=== PATIENT | female | born 2000 | race Caucasian/White ===

== ENCOUNTER 2023-10-04 12:25 | Emergency (ER) | payer OTHER ==
--- OUTSIDE RECORDS SUMMARY | 2023-10-04 12:33 | XMS REPORT | Continuity of Care Document ---
Author Name Unknown Address [address] [facility] [address] [place] [address] [facility] thconnect Address [address] [facility]. [address] [place] [address] Care Team Providers Care Civil Division Deputy Sheriff Name Role Phone PCP, PATIENT DOES NOT HAVE A Primary Care Physic marcie Unavailable RAYMON RODRIGUEZ Attending Clinician RAYMON Beltrán Attending Clinician Tito sahni Ultrasound, [facility] Attending Clinician UnavailJessica Monroe MD Attending Clinician [phone] JESSICA SAUCEDO Attending Clinician Unavailabl e Lab, Ang - Db Attending Clinician Unavailable Doctor Unassigned, [place] Attending Clinician ARJUN Wilkes Attending Clinician Arjun Herrera MD Attending Clinician + Shavon PACHECO Attending Clinician Unavailable Shavon Salgado Attending Clinician [phone] PAXTON HOPKINS Attending Clinician Unavailable Nurse, [facility] Attending Clinician Un available Unknown, Attending Attending Clinician Unavailab SHAISTA Ryan Attending Clinician Unavailable Shaista Yuen PA-C Attending Clinician [phone] MARCELINO DUDLEY Attending Clinician Unavailab Paxton Gardner Attending Clinician [phone] Marisol James Attending Clinician [phone] MARISOL NGUYEN Attending Clinician Unavailable Diego Jain Attending Clinician Unavailable Marcelino Banerjee Attending Clinician IVETTE YORK Attending Clinician Unavail able Physician, No Primary or Family Admitting Clinic marcie Unavailable Payers Payer Name Policy Type Policy Number Effective Date Expirati on Date Source [facility] [facility] [id number] 2023 00:00:00 Problems Condition Name Condition Details Condition Category Status Onset Date Resolution Date Last Treatment Date Treating Clinician Comments Source Depression affecting Depression affecting Disease Active 5-30 00:00: 00 [facility] Low lying placenta nos or without hemorrhage , second trimester Low lying placenta nos or without hemorrhage , second trimester Disease Active 3-28 00:00: 00 [facility] High-risk in second trimester High-risk in second trimester Disease Active 3-28 00:00: 00 [facility] Hx of preeclamps ia, prior , currently Hx of preeclamps ia, prior , currently Disease Active 2022-04 2- 00:00: 00 [facility] Chronic depression Chronic depression Disease Active 6- 00:00: 00 [facility] Panic attack Panic attack Disease Active 6- 00:00: 00 [facility] Psoriasis Psoriasis Disease Active 8- 00:00: 00 [facility] Vaginal discharge Vaginal discharge Disease Active 2019-04 2 00:00: 00 [facility] Need for influenza vaccinatio n Need for influenza vaccinatio n Disease Active 2018-04- 00:00: 00 [facility] Blood pressure check Blood pressure check Disease Active 2018-04 00:00: 00 [facility] Screen for STD (sexually transmitte d disease) Screen for STD (sexually transmitte d disease) Disease Active 2018-04 00:00: 00 [facility] Engorgemen t of breast associated with childbirth , antepartum Engorgemen t of breast associated with childbirth , antepartum Disease Active 2018-04 00:00: 00 [facility] Antepartum mild preeclamps ia Antepartum mild preeclamps ia Disease Active 2018-04 00:00: 00 [facility] Anemia, Anemia, Disease Active 2018-04 00:00: 00 [facility] (spontaneo us vaginal delivery) (spontaneo us vaginal delivery) Disease Active 2018-04 00:00: 00 [facility] Single liveborn Single liveborn Disease Active 2018-04 00:00: 00 [facility] Anemia of mother in , antepartum Anemia of mother in , antepartum Disease Active 2018-04 00:00: 00 [facility] Anemia of mother in , antepartum Anemia of mother in , antepartum Disease Active 2018-04 00:00: 00 [facility] Proteinuri a affecting in third trimester Proteinuri a affecting in third trimester Disease Active 2018-04 0 00:00: 00 [facility] Abnormal maternal glucose tolerance, antepartum Abnormal maternal glucose tolerance, antepartum Disease Active 12-18 00:00: 00 Overview: Formattin g of this note might be different from the original. Failed 1 hr gtt pending 3hr gtt [facility] Family history of congenital heart defect Family history of congenital heart defect Disease Active 6 00:00: 00 Overview: Formattin g of this note might be different from the original. Father of patient with VSD [facility] High-risk in first trimester High-risk in first trimester Disease Active 3-25 00:00: 00 [facility] High risk teen in second trimester High risk teen in second trimester Disease Active 07-16 00:00: 00 [facility] Primigravi da in first trimester Primigravi da in first trimester Disease Active 07-16 00:00: 00 [facility] History of depression History of depression Disease Active 07-16 00:00: 00 [facility] History of self-harm History of self-harm Disease Active 07-16 00:00: 00 [facility] Allergies, Adverse Reactions, Alerts Allergy Name Allergy Type Status Severity Reaction(s) Onset Date Inactive Date Treating Clinician Comments Source No Known Allergie s DA Active U 10-07 00:00: 00 [facility] No Known Allergie s DA Active U 10-07 00:00: 00 [facility] NO KNOWN ALLERGIE S Drug Class Active [facility] Social History Social Habit Start Date Stop Date Quantity Comments Source ASSERTION 2023-03-08 00:00:00 [facility] intake 2023-09-21 00:00:00 2023-09-21 00:00:00 Ex-drinker (finding) [facility] Tobacco use and exposure 2023-09-07 00:00:00 2023-09-07 00:00:00 Smokeless tobacco non-user [facility] Alcohol intake 2023-08-17 00:00:00 2023-08-17 00:00:00 Ex-drinker (finding) [facility] Exposure to SARS-CoV-2 (event) 2022-08-22 00:00:00 2022-09-01 20:12:00 Not sure [facility] History SDOH Alcohol Frequency 2020-04-13 00:00:00 2020-04-13 00:00:00 99 [facility] History SDOH Alcohol Std Drinks 2020-04-13 00:00:00 2020-04-13 00:00:00 99 [facility] History SDOH Alcohol Binge 2020-04-13 00:00:00 2020-04-13 00:00:00 99 [facility] Alcohol Comment 2020-04-13 00:00:00 2020-04-13 00:00:00 social [facility] Tobacco Comment 2020-04-13 00:00:00 2020-04-13 00:00:00 vapes [facility] History of Social function 2019-08-01 00:00:00 2019-08-01 00:00:00 [facility] History of tobacco use 2018-07-13 00:00:00 Cigarette Smoker [facility] Sex assigned at 2000 00:00:00 2000 00:00:00 [facility] Smoking Status Start Date Stop Date Source Ex-smoker 2023-09-07 00:00:00 2023-09-07 [facility] Ordered Medication Name Filled Medication Name Start Date Stop Date Current Medication? Ordering Clinician Indication Dosage Frequency Signature (SIG) Comments Components Source hydrOXYzine 25 mg tablet 09-11 00:00: 00 Yes [id number] 25mg Take 1 tablet by mouth every 6 (six) hours as needed for Itching. [facility] SERTraline (ZOLOFT) 100 mg tablet 09-11 00:00: 00 Yes [id number] 200mg Take 2 tablets by mouth in the morning. [facility] vit no.124/iron /folic ( VITAMIN ORAL) 16 14:41: 03 Yes Take by mouth. [facility] vit no.124/iron /folic ( VITAMIN ORAL) 3-28 16:04: 01 Yes Take by mouth. [facility] clonazePAM 0.5 mg tablet 06-08 13:14: 07 Yes TAKE 1 TABLET BY MOUTH EVERY MORNING 1 TABLET EVERY EVENING AND 1 TABLET BEFORE BEDTIME [facility] SERTraline (ZOLOFT) 100 mg tablet 06-08 00:00: 00 09-11 00:00 :00 No [id number] 100mg Take 1 tablet by mouth in the morning. [facility] cephALEXin (KEFLEX) capsule 500 mg 2022-04 22:30: 00 04-02 10:29 :00 No 500mg 500 mg, Oral, ONCE, 1 dose, On 12/9/23 at 1630, VIDAL
Re ason for Anti-Infec tive: Documented Infection< br>Documen dieudonne Infection Site: Urine
D uration of Therapy: 10 days [facility] cephALEXin (KEFLEX) 500 mg capsule 2022-04 2-09 00:00: 00 04-12 05:59 :00 No [id number] 500mg Take 1 capsule by mouth in the morning and 1 capsule at noon and 1 capsule in the evening. Do all this for 10 days. [facility] clonazePAM 0.5 mg tablet 2022-04 2 09:11: 27 Yes TAKE 1 TABLET BY MOUTH EVERY MORNING 1 TABLET EVERY EVENING AND 1 TABLET BEFORE BEDTIME [facility] traZODone 50 mg tablet 2022-04 1 00:00: 00 Yes 50mg Take 1 tablet by mouth. [facility] SERTraline 100 mg tablet 9- 00:00: 00 Yes daily. [facility] Nitrofurant oin&Nit. Macrocryst (MACROBID) 100 mg capsule 5-11 00:00: 00 09-09 04:59 :00 No [id number] 100mg Take 1 capsule by mouth in the morning and 1 capsule in the evening. Do all this for 7 days. [facility] cephALEXin (KEFLEX) 500 mg capsule 2020-04 0-14 00:00: 00 02-12 04:59 :00 No [id number] 500mg Take 1 capsule by mouth 2 (two) times daily for 7 days. [facility] neomycin-po lymyxin-hyd rocortisone otic solution 8-31 00:00: 00 Yes [facility] norgestimat e-ethinyl estradioL (ORTHO TRI-CYCLEN LO, 28,) 0.18/0.215/ 0.25 mg-25 mcg tablet 3-24 00:00: 00 03-30 00:00 :00 No [id number] 1{tbl} Take 1 tablet by mouth daily. [facility] Immunizations Ordered Immunization Name Filled Immunization Name Date Status Comments Source Influenza Virus Vaccine Quad .5 mL IM 6+ MO 2019-03-15 00:00:00 Completed [facility] Influenza Virus Vaccine Quad .5 mL IM 6+ MO 2019-03-15 00:00:00 Completed [facility] Influenza Virus Vaccine Quad .5 mL IM 6+ MO 2019-03-15 00:00:00 Completed [facility] Influenza Virus Vaccine Quad .5 mL IM 6+ MO 2019-03-15 00:00:00 Completed [facility] TDAP 2018-12-31 00:00:00 Completed [facility] TDAP 2018-12-31 00:00:00 Completed [facility] TDAP 2018-12-31 00:00:00 Completed [facility] TDAP 2018-12-31 00:00:00 Completed [facility] Influenza Virus Vaccine Quad .5 mL IM 6+ MO 2018-07-16 00:00:00 Completed [facility] Influenza Virus Vaccine Quad .5 mL IM 6+ MO 2018-07-16 00:00:00 Completed [facility] Influenza Virus Vaccine Quad .5 mL IM 6+ MO 2018-07-16 00:00:00 Completed [facility] Influenza Virus Vaccine Quad .5 mL IM 6+ MO 2018-07-16 00:00:00 Completed [facility] HIB 4 Dose Schedule Unknown Completed [facility] Meningococcal Polysaccharide (groups A, C, Y and W-135) conjugate vaccine (MCV4P) Unknown Completed [facility] MMR Unknown Completed [facility] MMR Unknown Completed [facility] IPV Unknown Completed [facility] IPV Unknown Completed [facility] IPV Unknown Completed [facility] IPV Unknown Completed [facility] Varicella (varivax)(chicken pox) Unknown Completed [facility] Varicella (varivax)(chicken pox) Unknown Completed [facility] TDAP Unknown Completed [facility] Influenza Virus Vaccine Quad .5 mL IM 6+ MO (FLUZONE/FLULAVAL/FL UARIX) Unknown Completed [facility] TDAP Unknown Completed [facility] Influenza Virus Vaccine Quad .5 mL IM 6+ MO (FLUZONE/FLULAVAL/FL UARIX) Unknown Completed [facility] Influenza Virus Vaccine Quad .5 mL IM 6+ MO (FLUZONE/FLULAVAL/FL UARIX) Unknown Completed [facility] TDAP Unknown Completed [facility] Influenza Virus Vaccine Quad .5 mL IM 6+ MO (FLUZONE/FLULAVAL/FL UARIX) Unknown Completed [facility] Influenza Virus Vaccine Quad IM, Preserv and ABX Free 6 MO-64 YRS (FLUCELVAX) Unknown Completed [facility] TDAP Unknown Completed [facility] DTaP, Unspecified Formulation Unknown Completed [facility] DTaP, Unspecified Formulation Unknown Completed [facility] DTaP, Unspecified Formulation Unknown Completed [facility] DTaP, Unspecified Formulation Unknown Completed [facility] DTaP, Unspecified Formulation Unknown Completed [facility] HEPATITIS A Unknown Completed [facility] Hep B, Adol or Pedi Dosage Unknown Completed [facility] Hep B, Adol or Pedi Dosage Unknown Completed [facility] Hep B, Adol or Pedi Dosage Unknown Completed [facility] HIB 4 Dose Schedule Unknown Completed [facility] HIB 4 Dose Schedule Unknown Completed [facility] HIB 4 Dose Schedule Unknown Completed [facility] HIB 4 Dose Schedule Unknown Completed [facility] Meningococcal Polysaccharide (groups A, C, Y and W-135) conjugate vaccine (MCV4P) Unknown Completed [facility] MMR Unknown Completed [facility] MMR Unknown Completed [facility] IPV Unknown Completed [facility] IPV Unknown Completed [facility] IPV Unknown Completed [facility] IPV Unknown Completed [facility] Varicella (varivax)(chicken pox) Unknown Completed [facility] Varicella (varivax)(chicken pox) Unknown Completed [facility] Influenza Virus Vaccine Quad .5 mL IM 6+ MO (FLUZONE/FLULAVAL/FL UARIX) Unknown Completed [facility] TDAP Unknown Completed [facility] Influenza Virus Vaccine Quad .5 mL IM 6+ MO (FLUZONE/FLULAVAL/FL UARIX) Unknown Completed [facility] Influenza Virus Vaccine Quad IM, Preserv and ABX Free 6 MO-64 YRS (FLUCELVAX) Unknown Completed [facility] TDAP Unknown Completed [facility] DTaP, Unspecified Formulation Unknown Completed [facility] DTaP, Unspecified Formulation Unknown Completed [facility] DTaP, Unspecified Formulation Unknown Completed [facility] DTaP, Unspecified Formulation Unknown Completed [facility] DTaP, Unspecified Formulation Unknown Completed [facility] HEPATITIS A Unknown Completed [facility] Hep B, Adol or Pedi Dosage Unknown Completed [facility] Hep B, Adol or Pedi Dosage Unknown Completed [facility] Hep B, Adol or Pedi Dosage Unknown Completed [facility] HIB 4 Dose Schedule Unknown Completed [facility] HIB 4 Dose Schedule Unknown Completed [facility] HIB 4 Dose Schedule Unknown Completed [facility] HIB 4 Dose Schedule Unknown Completed [facility] Meningococcal Polysaccharide (groups A, C, Y and W-135) conjugate vaccine (MCV4P) Unknown Completed [facility] MMR Unknown Completed [facility] MMR Unknown Completed [facility] IPV Unknown Completed [facility] IPV Unknown Completed [facility] IPV Unknown Completed [facility] IPV Unknown Completed [facility] Varicella (varivax)(chicken pox) Unknown Completed [facility] Varicella (varivax)(chicken pox) Unknown Completed [facility] Influenza Virus Vaccine Quad .5 mL IM 6+ MO (FLUZONE/FLULAVAL/FL UARIX) Unknown Completed [facility] TDAP Unknown Completed [facility] Influenza Virus Vaccine Quad .5 mL IM 6+ MO (FLUZONE/FLULAVAL/FL UARIX) Unknown Completed [facility] Influenza Virus Vaccine Quad IM, Preserv and ABX Free 6 MO-64 YRS (FLUCELVAX) Unknown Completed [facility] TDAP Unknown Completed [facility] DTaP, Unspecified Formulation Unknown Completed [facility] DTaP, Unspecified Formulation Unknown Completed [facility] DTaP, Unspecified Formulation Unknown Completed [facility] DTaP, Unspecified Formulation Unknown Completed [facility] DTaP, Unspecified Formulation Unknown Completed [facility] HEPATITIS A Unknown Completed [facility] Hep B, Adol or Pedi Dosage Unknown Completed [facility] Hep B, Adol or Pedi Dosage Unknown Completed [facility] Hep B, Adol or Pedi Dosage Unknown Completed [facility] HIB 4 Dose Schedule Unknown Completed [facility] HIB 4 Dose Schedule Unknown Completed [facility] HIB 4 Dose Schedule Unknown Completed [facility] HIB 4 Dose Schedule Unknown Completed [facility] Meningococcal Polysaccharide (groups A, C, Y and W-135) conjugate vaccine (MCV4P) Unknown Completed [facility] MMR Unknown Completed [facility] MMR Unknown Completed [facility] IPV Unknown Completed [facility] IPV Unknown Completed [facility] IPV Unknown Completed [facility] IPV Unknown Completed [facility] Varicella (varivax)(chicken pox) Unknown Completed [facility] Varicella (varivax)(chicken pox) Unknown Completed [facility] Influenza Virus Vaccine Quad .5 mL IM 6+ MO (FLUZONE/FLULAVAL/FL UARIX) Unknown Completed [facility] TDAP Unknown Completed [facility] Influenza Virus Vaccine Quad .5 mL IM 6+ MO (FLUZONE/FLULAVAL/FL UARIX) Unknown Completed [facility] Influenza Virus Vaccine Quad IM, Preserv and ABX Free 6 MO-64 YRS (FLUCELVAX) Unknown Completed [facility] TDAP Unknown Completed [facility] DTaP, Unspecified Formulation Unknown Completed [facility] DTaP, Unspecified Formulation Unknown Completed [facility] DTaP, Unspecified Formulation Unknown Completed [facility] DTaP, Unspecified Formulation Unknown Completed [facility] DTaP, Unspecified Formulation Unknown Completed [facility] HEPATITIS A Unknown Completed [facility] Hep B, Adol or Pedi Dosage Unknown Completed [facility] Hep B, Adol or Pedi Dosage Unknown Completed [facility] Hep B, Adol or Pedi Dosage Unknown Completed [facility] HIB 4 Dose Schedule Unknown Completed [facility] HIB 4 Dose Schedule Unknown Completed [facility] HIB 4 Dose Schedule Unknown Completed [facility] HIB 4 Dose Schedule Unknown Completed [facility] Meningococcal Polysaccharide (groups A, C, Y and W-135) conjugate vaccine (MCV4P) Unknown Completed [facility] MMR Unknown Completed [facility] MMR Unknown Completed [facility] IPV Unknown Completed [facility] IPV Unknown Completed [facility] IPV Unknown Completed [facility] IPV Unknown Completed [facility] Varicella (varivax)(chicken pox) Unknown Completed [facility] Varicella (varivax)(chicken pox) Unknown Completed [facility] Influenza Virus Vaccine Quad .5 mL IM 6+ MO (FLUZONE/FLULAVAL/FL UARIX) Unknown Completed [facility] TDAP Unknown Completed [facility] Influenza Virus Vaccine Quad .5 mL IM 6+ MO (FLUZONE/FLULAVAL/FL UARIX) Unknown Completed [facility] Influenza Virus Vaccine Quad IM, Preserv and ABX Free 6 MO-64 YRS (FLUCELVAX) Unknown Completed [facility] TDAP Unknown Completed [facility] DTaP, Unspecified Formulation Unknown Completed [facility] DTaP, Unspecified Formulation Unknown Completed [facility] DTaP, Unspecified Formulation Unknown Completed [facility] DTaP, Unspecified Formulation Unknown Completed [facility] DTaP, Unspecified Formulation Unknown Completed [facility] HEPATITIS A Unknown Completed [facility] Hep B, Adol or Pedi Dosage Unknown Completed [facility] Hep B, Adol or Pedi Dosage Unknown Completed [facility] Hep B, Adol or Pedi Dosage Unknown Completed [facility] HIB 4 Dose Schedule Unknown Completed [facility] HIB 4 Dose Schedule Unknown Completed [facility] HIB 4 Dose Schedule Unknown Completed [facility] HIB 4 Dose Schedule Unknown Completed [facility] Meningococcal Polysaccharide (groups A, C, Y and W-135) conjugate vaccine (MCV4P) Unknown Completed [facility] MMR Unknown Completed [facility] MMR Unknown Completed [facility] IPV Unknown Completed [facility] IPV Unknown Completed [facility] IPV Unknown Completed [facility] IPV Unknown Completed [facility] Varicella (varivax)(chicken pox) Unknown Completed [facility] Varicella (varivax)(chicken pox) Unknown Completed [facility] Influenza Virus Vaccine Quad .5 mL IM 6+ MO (FLUZONE/FLULAVAL/FL UARIX) Unknown Completed [facility] TDAP Unknown Completed [facility] Influenza Virus Vaccine Quad .5 mL IM 6+ MO (FLUZONE/FLULAVAL/FL UARIX) Unknown Completed [facility] Influenza Virus Vaccine Quad IM, Preserv and ABX Free 6 MO-64 YRS (FLUCELVAX) Unknown Completed [facility] TDAP Unknown Completed [facility] DTaP, Unspecified Formulation Unknown Completed [facility] DTaP, Unspecified Formulation Unknown Completed [facility] DTaP, Unspecified Formulation Unknown Completed [facility] DTaP, Unspecified Formulation Unknown Completed [facility] DTaP, Unspecified Formulation Unknown Completed [facility] HEPATITIS A Unknown Completed [facility] Hep B, Adol or Pedi Dosage Unknown Completed [facility] Hep B, Adol or Pedi Dosage Unknown Completed [facility] Hep B, Adol or Pedi Dosage Unknown Completed [facility] HIB 4 Dose Schedule Unknown Completed [facility] HIB 4 Dose Schedule Unknown Completed [facility] HIB 4 Dose Schedule Unknown Completed [facility] HIB 4 Dose Schedule Unknown Completed [facility] Meningococcal Polysaccharide (groups A, C, Y and W-135) conjugate vaccine (MCV4P) Unknown Completed [facility] MMR Unknown Completed [facility] MMR Unknown Completed [facility] IPV Unknown Completed [facility] IPV Unknown Completed [facility] IPV Unknown Completed [facility] IPV Unknown Completed [facility] Varicella (varivax)(chicken pox) Unknown Completed [facility] Varicella (varivax)(chicken pox) Unknown Completed [facility] Influenza Virus Vaccine Quad .5 mL IM 6+ MO (FLUZONE/FLULAVAL/FL UARIX) Unknown Completed [facility] TDAP Unknown Completed [facility] Influenza Virus Vaccine Quad .5 mL IM 6+ MO (FLUZONE/FLULAVAL/FL UARIX) Unknown Completed [facility] Influenza Virus Vaccine Quad IM, Preserv and ABX Free 6 MO-64 YRS (FLUCELVAX) Unknown Completed [facility] TDAP Unknown Completed [facility] DTaP, Unspecified Formulation Unknown Completed [facility] DTaP, Unspecified Formulation Unknown Completed [facility] DTaP, Unspecified Formulation Unknown Completed [facility] DTaP, Unspecified Formulation Unknown Completed [facility] DTaP, Unspecified Formulation Unknown Completed [facility] HEPATITIS A Unknown Completed [facility] Hep B, Adol or Pedi Dosage Unknown Completed [facility] Hep B, Adol or Pedi Dosage Unknown Completed [facility] Hep B, Adol or Pedi Dosage Unknown Completed [facility] HIB 4 Dose Schedule Unknown Completed [facility] HIB 4 Dose Schedule Unknown Completed [facility] HIB 4 Dose Schedule Unknown Completed [facility] HIB 4 Dose Schedule Unknown Completed [facility] Meningococcal Polysaccharide (groups A, C, Y and W-135) conjugate vaccine (MCV4P) Unknown Completed [facility] MMR Unknown Completed [facility] MMR Unknown Completed [facility] IPV Unknown Completed [facility] IPV Unknown Completed [facility] IPV Unknown Completed [facility] IPV Unknown Completed [facility] Varicella (varivax)(chicken pox) Unknown Completed [facility] Varicella (varivax)(chicken pox) Unknown Completed [facility] Influenza Virus Vaccine Quad .5 mL IM 6+ MO (FLUZONE/FLULAVAL/FL UARIX) Unknown Completed [facility] TDAP Unknown Completed [facility] Influenza Virus Vaccine Quad .5 mL IM 6+ MO (FLUZONE/FLULAVAL/FL UARIX) Unknown Completed [facility] Influenza Virus Vaccine Quad IM, Preserv and ABX Free 6 MO-64 YRS (FLUCELVAX) Unknown Completed [facility] TDAP Unknown Completed [facility] DTaP, Unspecified Formulation Unknown Completed [facility] DTaP, Unspecified Formulation Unknown Completed [facility] DTaP, Unspecified Formulation Unknown Completed [facility] DTaP, Unspecified Formulation Unknown Completed [facility] DTaP, Unspecified Formulation Unknown Completed [facility] HEPATITIS A Unknown Completed [facility] Hep B, Adol or Pedi Dosage Unknown Completed [facility] Hep B, Adol or Pedi Dosage Unknown Completed [facility] Hep B, Adol or Pedi Dosage Unknown Completed [facility] HIB 4 Dose Schedule Unknown Completed [facility] HIB 4 Dose Schedule Unknown Completed [facility] HIB 4 Dose Schedule Unknown Completed [facility] HIB 4 Dose Schedule Unknown Completed [facility] Meningococcal Polysaccharide (groups A, C, Y and W-135) conjugate vaccine (MCV4P) Unknown Completed [facility] MMR Unknown Completed [facility] MMR Unknown Completed [facility] IPV Unknown Completed [facility] IPV Unknown Completed [facility] IPV Unknown Completed [facility] IPV Unknown Completed [facility] Varicella (varivax)(chicken pox) Unknown Completed [facility] Varicella (varivax)(chicken pox) Unknown Completed [facility] Influenza Virus Vaccine Quad .5 mL IM 6+ MO (FLUZONE/FLULAVAL/FL UARIX) Unknown Completed [facility] TDAP Unknown Completed [facility] Influenza Virus Vaccine Quad .5 mL IM 6+ MO (FLUZONE/FLULAVAL/FL UARIX) Unknown Completed [facility] Influenza Virus Vaccine Quad IM, Preserv and ABX Free 6 MO-64 YRS (FLUCELVAX) Unknown Completed [facility] TDAP Unknown Completed [facility] DTaP, Unspecified Formulation Unknown Completed [facility] DTaP, Unspecified Formulation Unknown Completed [facility] DTaP, Unspecified Formulation Unknown Completed [facility] DTaP, Unspecified Formulation Unknown Completed [facility] DTaP, Unspecified Formulation Unknown Completed [facility] HEPATITIS A Unknown Completed [facility] Hep B, Adol or Pedi Dosage Unknown Completed [facility] Hep B, Adol or Pedi Dosage Unknown Completed [facility] Hep B, Adol or Pedi Dosage Unknown Completed [facility] HIB 4 Dose Schedule Unknown Completed [facility] HIB 4 Dose Schedule Unknown Completed [facility] HIB 4 Dose Schedule Unknown Completed [facility] HIB 4 Dose Schedule Unknown Completed [facility] Meningococcal Polysaccharide (groups A, C, Y and W-135) conjugate vaccine (MCV4P) Unknown Completed [facility] MMR Unknown Completed [facility] MMR Unknown Completed [facility] IPV Unknown Completed [facility] IPV Unknown Completed [facility] IPV Unknown Completed [facility] IPV Unknown Completed [facility] Varicella (varivax)(chicken pox) Unknown Completed [facility] Varicella (varivax)(chicken pox) Unknown Completed [facility] Influenza Virus Vaccine Quad .5 mL IM 6+ MO (FLUZONE/FLULAVAL/FL UARIX) Unknown Completed [facility] TDAP Unknown Completed [facility] Influenza Virus Vaccine Quad .5 mL IM 6+ MO (FLUZONE/FLULAVAL/FL UARIX) Unknown Completed [facility] Influenza Virus Vaccine Quad IM, Preserv and ABX Free 6 MO-64 YRS (FLUCELVAX) Unknown Completed [facility] TDAP Unknown Completed [facility] DTaP, Unspecified Formulation Unknown Completed [facility] DTaP, Unspecified Formulation Unknown Completed [facility] DTaP, Unspecified Formulation Unknown Completed [facility] DTaP, Unspecified Formulation Unknown Completed [facility] DTaP, Unspecified Formulation Unknown Completed [facility] HEPATITIS A Unknown Completed [facility] Hep B, Adol or Pedi Dosage Unknown Completed [facility] Hep B, Adol or Pedi Dosage Unknown Completed [facility] Hep B, Adol or Pedi Dosage Unknown Completed [facility] HIB 4 Dose Schedule Unknown Completed [facility] HIB 4 Dose Schedule Unknown Completed [facility] HIB 4 Dose Schedule Unknown Completed [facility] HIB 4 Dose Schedule Unknown Completed [facility] Meningococcal Polysaccharide (groups A, C, Y and W-135) conjugate vaccine (MCV4P) Unknown Completed [facility] MMR Unknown Completed [facility] MMR Unknown Completed [facility] IPV Unknown Completed [facility] IPV Unknown Completed [facility] IPV Unknown Completed [facility] IPV Unknown Completed [facility] Varicella (varivax)(chicken pox) Unknown Completed [facility] Varicella (varivax)(chicken pox) Unknown Completed [facility] Influenza Virus Vaccine Quad .5 mL IM 6+ MO (FLUZONE/FLULAVAL/FL UARIX) Unknown Completed [facility] TDAP Unknown Completed [facility] Influenza Virus Vaccine Quad .5 mL IM 6+ MO (FLUZONE/FLULAVAL/FL UARIX) Unknown Completed [facility] Influenza Virus Vaccine Quad IM, Preserv and ABX Free 6 MO-64 YRS (FLUCELVAX) Unknown Completed [facility] TDAP Unknown Completed [facility] DTaP, Unspecified Formulation Unknown Completed [facility] DTaP, Unspecified Formulation Unknown Completed [facility] DTaP, Unspecified Formulation Unknown Completed [facility] DTaP, Unspecified Formulation Unknown Completed [facility] DTaP, Unspecified Formulation Unknown Completed [facility] HEPATITIS A Unknown Completed [facility] Hep B, Adol or Pedi Dosage Unknown Completed [facility] Hep B, Adol or Pedi Dosage Unknown Completed [facility] Hep B, Adol or Pedi Dosage Unknown Completed [facility] HIB 4 Dose Schedule Unknown Completed [facility] HIB 4 Dose Schedule Unknown Completed [facility] HIB 4 Dose Schedule Unknown Completed [facility] HIB 4 Dose Schedule Unknown Completed [facility] Meningococcal Polysaccharide (groups A, C, Y and W-135) conjugate vaccine (MCV4P) Unknown Completed [facility] MMR Unknown Completed [facility] MMR Unknown Completed [facility] IPV Unknown Completed [facility] IPV Unknown Completed [facility] IPV Unknown Completed [facility] IPV Unknown Completed [facility] Varicella (varivax)(chicken pox) Unknown Completed [facility] Varicella (varivax)(chicken pox) Unknown Completed [facility] Influenza Virus Vaccine Quad .5 mL IM 6+ MO (FLUZONE/FLULAVAL/FL UARIX) Unknown Completed [facility] TDAP Unknown Completed [facility] Influenza Virus Vaccine Quad .5 mL IM 6+ MO (FLUZONE/FLULAVAL/FL UARIX) Unknown Completed [facility] Influenza Virus Vaccine Quad IM, Preserv and ABX Free 6 MO-64 YRS (FLUCELVAX) Unknown Completed [facility] TDAP Unknown Completed [facility] DTaP, Unspecified Formulation Unknown Completed [facility] DTaP, Unspecified Formulation Unknown Completed [facility] DTaP, Unspecified Formulation Unknown Completed [facility] DTaP, Unspecified Formulation Unknown Completed [facility] DTaP, Unspecified Formulation Unknown Completed [facility] HEPATITIS A Unknown Completed [facility] Hep B, Adol or Pedi Dosage Unknown Completed [facility] Hep B, Adol or Pedi Dosage Unknown Completed [facility] Hep B, Adol or Pedi Dosage Unknown Completed [facility] HIB 4 Dose Schedule Unknown Completed [facility] HIB 4 Dose Schedule Unknown Completed [facility] HIB 4 Dose Schedule Unknown Completed [facility] HIB 4 Dose Schedule Unknown Completed [facility] Meningococcal Polysaccharide (groups A, C, Y and W-135) conjugate vaccine (MCV4P) Unknown Completed [facility] MMR Unknown Completed [facility] MMR Unknown Completed [facility] IPV Unknown Completed [facility] IPV Unknown Completed [facility] IPV Unknown Completed [facility] IPV Unknown Completed [facility] Varicella (varivax)(chicken pox) Unknown Completed [facility] Varicella (varivax)(chicken pox) Unknown Completed [facility] Influenza Virus Vaccine Quad .5 mL IM 6+ MO (FLUZONE/FLULAVAL/FL UARIX) Unknown Completed [facility] TDAP Unknown Completed [facility] Influenza Virus Vaccine Quad .5 mL IM 6+ MO (FLUZONE/FLULAVAL/FL UARIX) Unknown Completed [facility] Influenza Virus Vaccine Quad IM, Preserv and ABX Free 6 MO-64 YRS (FLUCELVAX) Unknown Completed [facility] TDAP Unknown Completed [facility] DTaP, Unspecified Formulation Unknown Completed [facility] DTaP, Unspecified Formulation Unknown Completed [facility] DTaP, Unspecified Formulation Unknown Completed [facility] DTaP, Unspecified Formulation Unknown Completed [facility] DTaP, Unspecified Formulation Unknown Completed [facility] HEPATITIS A Unknown Completed [facility] Hep B, Adol or Pedi Dosage Unknown Completed [facility] Hep B, Adol or Pedi Dosage Unknown Completed [facility] Hep B, Adol or Pedi Dosage Unknown Completed [facility] HIB 4 Dose Schedule Unknown Completed [facility] HIB 4 Dose Schedule Unknown Completed [facility] HIB 4 Dose Schedule Unknown Completed [facility] HIB 4 Dose Schedule Unknown Completed [facility] Meningococcal Polysaccharide (groups A, C, Y and W-135) conjugate vaccine (MCV4P) Unknown Completed [facility] MMR Unknown Completed [facility] MMR Unknown Completed [facility] IPV Unknown Completed [facility] IPV Unknown Completed [facility] IPV Unknown Completed [facility] IPV Unknown Completed [facility] Varicella (varivax)(chicken pox) Unknown Completed [facility] Varicella (varivax)(chicken pox) Unknown Completed [facility] Influenza Virus Vaccine Quad .5 mL IM 6+ MO (FLUZONE/FLULAVAL/FL UARIX) Unknown Completed [facility] TDAP Unknown Completed [facility] Influenza Virus Vaccine Quad .5 mL IM 6+ MO (FLUZONE/FLULAVAL/FL UARIX) Unknown Completed [facility] Influenza Virus Vaccine Quad IM, Preserv and ABX Free 6 MO-64 YRS (FLUCELVAX) Unknown Completed [facility] TDAP Unknown Completed [facility] DTaP, Unspecified Formulation Unknown Completed [facility] DTaP, Unspecified Formulation Unknown Completed [facility] DTaP, Unspecified Formulation Unknown Completed [facility] DTaP, Unspecified Formulation Unknown Completed [facility] DTaP, Unspecified Formulation Unknown Completed [facility] HEPATITIS A Unknown Completed [facility] Hep B, Adol or Pedi Dosage Unknown Completed [facility] Hep B, Adol or Pedi Dosage Unknown Completed [facility] Hep B, Adol or Pedi Dosage Unknown Completed [facility] HIB 4 Dose Schedule Unknown Completed [facility] HIB 4 Dose Schedule Unknown Completed [facility] HIB 4 Dose Schedule Unknown Completed [facility] HIB 4 Dose Schedule Unknown Completed [facility] Meningococcal Polysaccharide (groups A, C, Y and W-135) conjugate vaccine (MCV4P) Unknown Completed [facility] MMR Unknown Completed [facility] MMR Unknown Completed [facility] IPV Unknown Completed [facility] IPV Unknown Completed [facility] IPV Unknown Completed [facility] IPV Unknown Completed [facility] Varicella (varivax)(chicken pox) Unknown Completed [facility] Varicella (varivax)(chicken pox) Unknown Completed [facility] Influenza Virus Vaccine Quad .5 mL IM 6+ MO (FLUZONE/FLULAVAL/FL UARIX) Unknown Completed [facility] TDAP Unknown Completed [facility] Influenza Virus Vaccine Quad .5 mL IM 6+ MO (FLUZONE/FLULAVAL/FL UARIX) Unknown Completed [facility] Influenza Virus Vaccine Quad IM, Preserv and ABX Free 6 MO-64 YRS (FLUCELVAX) Unknown Completed [facility] TDAP Unknown Completed [facility] DTaP, Unspecified Formulation Unknown Completed [facility] DTaP, Unspecified Formulation Unknown Completed [facility] DTaP, Unspecified Formulation Unknown Completed [facility] DTaP, Unspecified Formulation Unknown Completed [facility] DTaP, Unspecified Formulation Unknown Completed [facility] HEPATITIS A Unknown Completed [facility] Hep B, Adol or Pedi Dosage Unknown Completed [facility] Hep B, Adol or Pedi Dosage Unknown Completed [facility] Hep B, Adol or Pedi Dosage Unknown Completed [facility] HIB 4 Dose Schedule Unknown Completed [facility] HIB 4 Dose Schedule Unknown Completed [facility] HIB 4 Dose Schedule Unknown Completed [facility] HIB 4 Dose Schedule Unknown Completed [facility] Meningococcal Polysaccharide (groups A, C, Y and W-135) conjugate vaccine (MCV4P) Unknown Completed [facility] MMR Unknown Completed [facility] MMR Unknown Completed [facility] IPV Unknown Completed [facility] IPV Unknown Completed [facility] IPV Unknown Completed [facility] IPV Unknown Completed [facility] Varicella (varivax)(chicken pox) Unknown Completed [facility] Varicella (varivax)(chicken pox) Unknown Completed [facility] Influenza Virus Vaccine Quad .5 mL IM 6+ MO (FLUZONE/FLULAVAL/FL UARIX) Unknown Completed [facility] TDAP Unknown Completed [facility] Influenza Virus Vaccine Quad .5 mL IM 6+ MO (FLUZONE/FLULAVAL/FL UARIX) Unknown Completed [facility] Influenza Virus Vaccine Quad IM, Preserv and ABX Free 6 MO-64 YRS (FLUCELVAX) Unknown Completed [facility] TDAP Unknown Completed [facility] DTaP, Unspecified Formulation Unknown Completed [facility] DTaP, Unspecified Formulation Unknown Completed [facility] DTaP, Unspecified Formulation Unknown Completed [facility] DTaP, Unspecified Formulation Unknown Completed [facility] DTaP, Unspecified Formulation Unknown Completed [facility] HEPATITIS A Unknown Completed [facility] Hep B, Adol or Pedi Dosage Unknown Completed [facility] Hep B, Adol or Pedi Dosage Unknown Completed [facility] Hep B, Adol or Pedi Dosage Unknown Completed [facility] HIB 4 Dose Schedule Unknown Completed [facility] HIB 4 Dose Schedule Unknown Completed [facility] HIB 4 Dose Schedule Unknown Completed [facility] HIB 4 Dose Schedule Unknown Completed [facility] Meningococcal Polysaccharide (groups A, C, Y and W-135) conjugate vaccine (MCV4P) Unknown Completed [facility] MMR Unknown Completed [facility] MMR Unknown Completed [facility] IPV Unknown Completed [facility] IPV Unknown Completed [facility] IPV Unknown Completed [facility] IPV Unknown Completed [facility] Varicella (varivax)(chicken pox) Unknown Completed [facility] Varicella (varivax)(chicken pox) Unknown Completed [facility] Influenza Virus Vaccine Quad .5 mL IM 6+ MO (FLUZONE/FLULAVAL/FL UARIX) Unknown Completed [facility] TDAP Unknown Completed [facility] Influenza Virus Vaccine Quad .5 mL IM 6+ MO (FLUZONE/FLULAVAL/FL UARIX) Unknown Completed [facility] Influenza Virus Vaccine Quad IM, Preserv and ABX Free 6 MO-64 YRS (FLUCELVAX) Unknown Completed [facility] TDAP Unknown Completed [facility] DTaP, Unspecified Formulation Unknown Completed [facility] DTaP, Unspecified Formulation Unknown Completed [facility] DTaP, Unspecified Formulation Unknown Completed [facility] DTaP, Unspecified Formulation Unknown Completed [facility] DTaP, Unspecified Formulation Unknown Completed [facility] HEPATITIS A Unknown Completed [facility] Hep B, Adol or Pedi Dosage Unknown Completed [facility] Hep B, Adol or Pedi Dosage Unknown Completed [facility] Hep B, Adol or Pedi Dosage Unknown Completed [facility] HIB 4 Dose Schedule Unknown Completed [facility] HIB 4 Dose Schedule Unknown Completed [facility] HIB 4 Dose Schedule Unknown Completed [facility] HIB 4 Dose Schedule Unknown Completed [facility] Meningococcal Polysaccharide (groups A, C, Y and W-135) conjugate vaccine (MCV4P) Unknown Completed [facility] MMR Unknown Completed [facility] MMR Unknown Completed [facility] IPV Unknown Completed [facility] IPV Unknown Completed [facility] IPV Unknown Completed [facility] IPV Unknown Completed [facility] Varicella (varivax)(chicken pox) Unknown Completed [facility] Varicella (varivax)(chicken pox) Unknown Completed [facility] Influenza Virus Vaccine Quad .5 mL IM 6+ MO (FLUZONE/FLULAVAL/FL UARIX) Unknown Completed [facility] TDAP Unknown Completed [facility] Influenza Virus Vaccine Quad .5 mL IM 6+ MO (FLUZONE/FLULAVAL/FL UARIX) Unknown Completed [facility] Influenza Virus Vaccine Quad IM, Preserv and ABX Free 6 MO-64 YRS (FLUCELVAX) Unknown Completed [facility] TDAP Unknown Completed [facility] DTaP, Unspecified Formulation Unknown Completed [facility] DTaP, Unspecified Formulation Unknown Completed [facility] DTaP, Unspecified Formulation Unknown Completed [facility] DTaP, Unspecified Formulation Unknown Completed [facility] DTaP, Unspecified Formulation Unknown Completed [facility] HEPATITIS A Unknown Completed [facility] Hep B, Adol or Pedi Dosage Unknown Completed [facility] Hep B, Adol or Pedi Dosage Unknown Completed [facility] Hep B, Adol or Pedi Dosage Unknown Completed [facility] HIB 4 Dose Schedule Unknown Completed [facility] HIB 4 Dose Schedule Unknown Completed [facility] HIB 4 Dose Schedule Unknown Completed [facility] HIB 4 Dose Schedule Unknown Completed [facility] Meningococcal Polysaccharide (groups A, C, Y and W-135) conjugate vaccine (MCV4P) Unknown Completed [facility] MMR Unknown Completed [facility] MMR Unknown Completed [facility] IPV Unknown Completed [facility] IPV Unknown Completed [facility] IPV Unknown Completed [facility] IPV Unknown Completed [facility] Varicella (varivax)(chicken pox) Unknown Completed [facility] Varicella (varivax)(chicken pox) Unknown Completed [facility] Influenza Virus Vaccine Quad .5 mL IM 6+ MO (FLUZONE/FLULAVAL/FL UARIX) Unknown Completed [facility] TDAP Unknown Completed [facility] Influenza Virus Vaccine Quad .5 mL IM 6+ MO (FLUZONE/FLULAVAL/FL UARIX) Unknown Completed [facility] Influenza Virus Vaccine Quad IM, Preserv and ABX Free 6 MO-64 YRS (FLUCELVAX) Unknown Completed [facility] TDAP Unknown Completed [facility] DTaP, Unspecified Formulation Unknown Completed [facility] DTaP, Unspecified Formulation Unknown Completed [facility] DTaP, Unspecified Formulation Unknown Completed [facility] DTaP, Unspecified Formulation Unknown Completed [facility] DTaP, Unspecified Formulation Unknown Completed [facility] HEPATITIS A Unknown Completed [facility] Hep B, Adol or Pedi Dosage Unknown Completed [facility] Hep B, Adol or Pedi Dosage Unknown Completed [facility] Hep B, Adol or Pedi Dosage Unknown Completed [facility] HIB 4 Dose Schedule Unknown Completed [facility] HIB 4 Dose Schedule Unknown Completed [facility] HIB 4 Dose Schedule Unknown Completed [facility] HIB 4 Dose Schedule Unknown Completed [facility] Meningococcal Polysaccharide (groups A, C, Y and W-135) conjugate vaccine (MCV4P) Unknown Completed [facility] MMR Unknown Completed [facility] MMR Unknown Completed [facility] IPV Unknown Completed [facility] IPV Unknown Completed [facility] IPV Unknown Completed [facility] IPV Unknown Completed [facility] Varicella (varivax)(chicken pox) Unknown Completed [facility] Varicella (varivax)(chicken pox) Unknown Completed [facility] Influenza Virus Vaccine Quad .5 mL IM 6+ MO (FLUZONE/FLULAVAL/FL UARIX) Unknown Completed [facility] TDAP Unknown Completed [facility] Influenza Virus Vaccine Quad .5 mL IM 6+ MO (FLUZONE/FLULAVAL/FL UARIX) Unknown Completed [facility] Influenza Virus Vaccine Quad IM, Preserv and ABX Free 6 MO-64 YRS (FLUCELVAX) Unknown Completed [facility] TDAP Unknown Completed [facility] DTaP, Unspecified Formulation Unknown Completed [facility] DTaP, Unspecified Formulation Unknown Completed [facility] DTaP, Unspecified Formulation Unknown Completed [facility] DTaP, Unspecified Formulation Unknown Completed [facility] DTaP, Unspecified Formulation Unknown Completed [facility] HEPATITIS A Unknown Completed [facility] Hep B, Adol or Pedi Dosage Unknown Completed [facility] Hep B, Adol or Pedi Dosage Unknown Completed [facility] Hep B, Adol or Pedi Dosage Unknown Completed [facility] HIB 4 Dose Schedule Unknown Completed [facility] HIB 4 Dose Schedule Unknown Completed [facility] HIB 4 Dose Schedule Unknown Completed [facility] HIB 4 Dose Schedule Unknown Completed [facility] Meningococcal Polysaccharide (groups A, C, Y and W-135) conjugate vaccine (MCV4P) Unknown Completed [facility] MMR Unknown Completed [facility] MMR Unknown Completed [facility] IPV Unknown Completed [facility] IPV Unknown Completed [facility] IPV Unknown Completed [facility] IPV Unknown Completed [facility] Varicella (varivax)(chicken pox) Unknown Completed [facility] Varicella (varivax)(chicken pox) Unknown Completed [facility] Influenza Virus Vaccine Quad .5 mL IM 6+ MO (FLUZONE/FLULAVAL/FL UARIX) Unknown Completed [facility] TDAP Unknown Completed [facility] Influenza Virus Vaccine Quad .5 mL IM 6+ MO (FLUZONE/FLULAVAL/FL UARIX) Unknown Completed [facility] Influenza Virus Vaccine Quad IM, Preserv and ABX Free 6 MO-64 YRS (FLUCELVAX) Unknown Completed [facility] TDAP Unknown Completed [facility] DTaP, Unspecified Formulation Unknown Completed [facility] DTaP, Unspecified Formulation Unknown Completed [facility] DTaP, Unspecified Formulation Unknown Completed [facility] DTaP, Unspecified Formulation Unknown Completed [facility] DTaP, Unspecified Formulation Unknown Completed [facility] HEPATITIS A Unknown Completed [facility] Hep B, Adol or Pedi Dosage Unknown Completed [facility] Hep B, Adol or Pedi Dosage Unknown Completed [facility] Hep B, Adol or Pedi Dosage Unknown Completed [facility] HIB 4 Dose Schedule Unknown Completed [facility] HIB 4 Dose Schedule Unknown Completed [facility] HIB 4 Dose Schedule Unknown Completed [facility] HIB 4 Dose Schedule Unknown Completed [facility] Meningococcal Polysaccharide (groups A, C, Y and W-135) conjugate vaccine (MCV4P) Unknown Completed [facility] MMR Unknown Completed [facility] MMR Unknown Completed [facility] IPV Unknown Completed [facility] IPV Unknown Completed [facility] IPV Unknown Completed [facility] IPV Unknown Completed [facility] Varicella (varivax)(chicken pox) Unknown Completed [facility] Varicella (varivax)(chicken pox) Unknown Completed [facility] Influenza Virus Vaccine Quad .5 mL IM 6+ MO (FLUZONE/FLULAVAL/FL UARIX) Unknown Completed [facility] TDAP Unknown Completed [facility] Influenza Virus Vaccine Quad .5 mL IM 6+ MO (FLUZONE/FLULAVAL/FL UARIX) Unknown Completed [facility] Influenza Virus Vaccine Quad IM, Preserv and ABX Free 6 MO-64 YRS (FLUCELVAX) Unknown Completed [facility] TDAP Unknown Completed [facility] DTaP, Unspecified Formulation Unknown Completed [facility] DTaP, Unspecified Formulation Unknown Completed [facility] DTaP, Unspecified Formulation Unknown Completed [facility] DTaP, Unspecified Formulation Unknown Completed [facility] DTaP, Unspecified Formulation Unknown Completed [facility] HEPATITIS A Unknown Completed [facility] Hep B, Adol or Pedi Dosage Unknown Completed [facility] Hep B, Adol or Pedi Dosage Unknown Completed [facility] Hep B, Adol or Pedi Dosage Unknown Completed [facility] HIB 4 Dose Schedule Unknown Completed [facility] HIB 4 Dose Schedule Unknown Completed [facility] HIB 4 Dose Schedule Unknown Completed [facility] HIB 4 Dose Schedule Unknown Completed [facility] Meningococcal Polysaccharide (groups A, C, Y and W-135) conjugate vaccine (MCV4P) Unknown Completed [facility] MMR Unknown Completed [facility] MMR Unknown Completed [facility] IPV Unknown Completed [facility] IPV Unknown Completed [facility] IPV Unknown Completed [facility] IPV Unknown Completed [facility] Varicella (varivax)(chicken pox) Unknown Completed [facility] Varicella (varivax)(chicken pox) Unknown Completed [facility] Influenza Virus Vaccine Quad .5 mL IM 6+ MO (FLUZONE/FLULAVAL/FL UARIX) Unknown Completed [facility] TDAP Unknown Completed [facility] Influenza Virus Vaccine Quad .5 mL IM 6+ MO (FLUZONE/FLULAVAL/FL UARIX) Unknown Completed [facility] Influenza Virus Vaccine Quad IM, Preserv and ABX Free 6 MO-64 YRS (FLUCELVAX) Unknown Completed [facility] TDAP Unknown Completed [facility] DTaP, Unspecified Formulation Unknown Completed [facility] DTaP, Unspecified Formulation Unknown Completed [facility] DTaP, Unspecified Formulation Unknown Completed [facility] DTaP, Unspecified Formulation Unknown Completed [facility] DTaP, Unspecified Formulation Unknown Completed [facility] HEPATITIS A Unknown Completed [facility] Hep B, Adol or Pedi Dosage Unknown Completed [facility] Hep B, Adol or Pedi Dosage Unknown Completed [facility] Hep B, Adol or Pedi Dosage Unknown Completed [facility] HIB 4 Dose Schedule Unknown Completed [facility] HIB 4 Dose Schedule Unknown Completed [facility] HIB 4 Dose Schedule Unknown Completed [facility] HIB 4 Dose Schedule Unknown Completed [facility] Meningococcal Polysaccharide (groups A, C, Y and W-135) conjugate vaccine (MCV4P) Unknown Completed [facility] MMR Unknown Completed [facility] MMR Unknown Completed [facility] IPV Unknown Completed [facility] IPV Unknown Completed [facility] IPV Unknown Completed [facility] IPV Unknown Completed [facility] Varicella (varivax)(chicken pox) Unknown Completed [facility] Varicella (varivax)(chicken pox) Unknown Completed [facility] TDAP Unknown Completed [facility] Influenza Virus Vaccine Quad .5 mL IM 6+ MO (FLUZONE/FLULAVAL/FL UARIX) Unknown Completed [facility] TDAP Unknown Completed [facility] Influenza Virus Vaccine Quad .5 mL IM 6+ MO (FLUZONE/FLULAVAL/FL UARIX) Unknown Completed [facility] Influenza Virus Vaccine Quad IM, Preserv and ABX Free 6 MO-64 YRS (FLUCELVAX) Unknown Completed [facility] TDAP Unknown Completed [facility] DTaP, Unspecified Formulation Unknown Completed [facility] DTaP, Unspecified Formulation Unknown Completed [facility] DTaP, Unspecified Formulation Unknown Completed [facility] DTaP, Unspecified Formulation Unknown Completed [facility] DTaP, Unspecified Formulation Unknown Completed [facility] HEPATITIS A Unknown Completed [facility] Hep B, Adol or Pedi Dosage Unknown Completed [facility] Hep B, Adol or Pedi Dosage Unknown Completed [facility] Hep B, Adol or Pedi Dosage Unknown Completed [facility] HIB 4 Dose Schedule Unknown Completed [facility] HIB 4 Dose Schedule Unknown Completed [facility] HIB 4 Dose Schedule Unknown Completed [facility] HIB 4 Dose Schedule Unknown Completed [facility] Meningococcal Polysaccharide (groups A, C, Y and W-135) conjugate vaccine (MCV4P) Unknown Completed [facility] MMR Unknown Completed [facility] MMR Unknown Completed [facility] IPV Unknown Completed [facility] IPV Unknown Completed [facility] IPV Unknown Completed [facility] IPV Unknown Completed [facility] Varicella (varivax)(chicken pox) Unknown Completed [facility] Varicella (varivax)(chicken pox) Unknown Completed [facility] Influenza Virus Vaccine Quad .5 mL IM 6+ MO (FLUZONE/FLULAVAL/FL UARIX) Unknown Completed [facility] TDAP Unknown Completed [facility] Influenza Virus Vaccine Quad .5 mL IM 6+ MO (FLUZONE/FLULAVAL/FL UARIX) Unknown Completed [facility] Influenza Virus Vaccine Quad IM, Preserv and ABX Free 6 MO-64 YRS (FLUCELVAX) Unknown Completed [facility] TDAP Unknown Completed [facility] DTaP, Unspecified Formulation Unknown Completed [facility] DTaP, Unspecified Formulation Unknown Completed [facility] DTaP, Unspecified Formulation Unknown Completed [facility] DTaP, Unspecified Formulation Unknown Completed [facility] DTaP, Unspecified Formulation Unknown Completed [facility] HEPATITIS A Unknown Completed [facility] Hep B, Adol or Pedi Dosage Unknown Completed [facility] Hep B, Adol or Pedi Dosage Unknown Completed [facility] Hep B, Adol or Pedi Dosage Unknown Completed [facility] HIB 4 Dose Schedule Unknown Completed [facility] HIB 4 Dose Schedule Unknown Completed [facility] HIB 4 Dose Schedule Unknown Completed [facility] HIB 4 Dose Schedule Unknown Completed [facility] Meningococcal Polysaccharide (groups A, C, Y and W-135) conjugate vaccine (MCV4P) Unknown Completed [facility] MMR Unknown Completed [facility] MMR Unknown Completed [facility] IPV Unknown Completed [facility] IPV Unknown Completed [facility] IPV Unknown Completed [facility] IPV Unknown Completed [facility] Varicella (varivax)(chicken pox) Unknown Completed [facility] Varicella (varivax)(chicken pox) Unknown Completed [facility] TDAP Unknown Completed [facility] Influenza Virus Vaccine Quad .5 mL IM 6+ MO (FLUZONE/FLULAVAL/FL UARIX) Unknown Completed [facility] TDAP Unknown Completed [facility] Influenza Virus Vaccine Quad .5 mL IM 6+ MO (FLUZONE/FLULAVAL/FL UARIX) Unknown Completed [facility] Influenza Virus Vaccine Quad IM, Preserv and ABX Free 6 MO-64 YRS (FLUCELVAX) Unknown Completed [facility] TDAP Unknown Completed [facility] DTaP, Unspecified Formulation Unknown Completed [facility] DTaP, Unspecified Formulation Unknown Completed [facility] DTaP, Unspecified Formulation Unknown Completed [facility] DTaP, Unspecified Formulation Unknown Completed [facility] DTaP, Unspecified Formulation Unknown Completed [facility] HEPATITIS A Unknown Completed [facility] Hep B, Adol or Pedi Dosage Unknown Completed [facility] Hep B, Adol or Pedi Dosage Unknown Completed [facility] Hep B, Adol or Pedi Dosage Unknown Completed [facility] HIB 4 Dose Schedule Unknown Completed [facility] HIB 4 Dose Schedule Unknown Completed [facility] HIB 4 Dose Schedule Unknown Completed [facility] HIB 4 Dose Schedule Unknown Completed [facility] Meningococcal Polysaccharide (groups A, C, Y and W-135) conjugate vaccine (MCV4P) Unknown Completed [facility] MMR Unknown Completed [facility] MMR Unknown Completed [facility] IPV Unknown Completed [facility] IPV Unknown Completed [facility] IPV Unknown Completed [facility] IPV Unknown Completed [facility] Varicella (varivax)(chicken pox) Unknown Completed [facility] Varicella (varivax)(chicken pox) Unknown Completed [facility] TDAP Unknown Completed [facility] Influenza Virus Vaccine Quad .5 mL IM 6+ MO (FLUZONE/FLULAVAL/FL UARIX) Unknown Completed [facility] TDAP Unknown Completed [facility] Influenza Virus Vaccine Quad .5 mL IM 6+ MO (FLUZONE/FLULAVAL/FL UARIX) Unknown Completed [facility] Influenza Virus Vaccine Quad IM, Preserv and ABX Free 6 MO-64 YRS (FLUCELVAX) Unknown Completed [facility] TDAP Unknown Completed [facility] DTaP, Unspecified Formulation Unknown Completed [facility] DTaP, Unspecified Formulation Unknown Completed [facility] DTaP, Unspecified Formulation Unknown Completed [facility] DTaP, Unspecified Formulation Unknown Completed [facility] DTaP, Unspecified Formulation Unknown Completed [facility] HEPATITIS A Unknown Completed [facility] Hep B, Adol or Pedi Dosage Unknown Completed [facility] Hep B, Adol or Pedi Dosage Unknown Completed [facility] Hep B, Adol or Pedi Dosage Unknown Completed [facility] HIB 4 Dose Schedule Unknown Completed [facility] HIB 4 Dose Schedule Unknown Completed [facility] HIB 4 Dose Schedule Unknown Completed [facility] Vital Signs Vital Name Observation Time Observation Value Comments S ource Systolic blood pressure 2023-09-21 18:11:00 124 mm[Hg] [facility] Diastolic blood pressure 2023-09-21 18:11:00 75 mm[Hg] [facility] Heart rate 2023-09-21 18:11:00 90 /min [facility] Body temperature 2023-09-21 18:11:00 36.67 [facility] Respiratory rate 2023-09-21 18:11:00 16 /min [facility] Body height 2023-09-21 18:11:00 170.2 cm [facility] Body weight 2023-09-21 18:11:00 84.823 kg [facility] BMI 2023-09-21 18:11:00 29.29 kg/m2 [facility] Systolic blood pressure 2023-09-07 19:40:00 127 mm[Hg] [facility] Diastolic blood pressure 2023-09-07 19:40:00 74 mm[Hg] [facility] Heart rate 2023-09-07 19:40:00 118 /min [facility] Respiratory rate 2023-09-07 19:40:00 18 /min [facility] Body height 2023-09-07 19:40:00 170.2 cm [facility] Body weight 2023-09-07 19:40:00 82.101 kg [facility] BMI 2023-09-07 19:40:00 28.35 kg/m2 [facility] Systolic blood pressure 2023-08-17 19:19:00 120 mm[Hg] [facility] Diastolic blood pressure 2023-08-17 19:19:00 78 mm[Hg] [facility] Heart rate 2023-08-17 19:19:00 77 /min [facility] Body temperature 2023-08-17 19:19:00 36.78 [facility] Respiratory rate 2023-08-17 19:19:00 16 /min [facility] Body height 2023-08-17 19:19:00 [facility] 2023-08-17 19:19:00 79.606 kg [facility] BMI 2023-08-17 19:19:00 27.49 kg/m2 [facility] Systolic blood pressure 2023-07-20 20:59:00 119 mm[Hg] [facility] Diastolic blood pressure 2023-07-20 20:59:00 74 mm[Hg] [facility] Heart rate 2023-07-20 20:59:00 97 /min [facility] Respiratory rate 2023-07-20 20:59:00 18 /min [facility] Body height 2023-07-20 20:59:00 170.2 cm [facility] Body weight 2023-07-20 20:59:00 75.751 kg [facility] BMI 2023-07-20 20:59:00 26.16 kg/m2 [facility] Systolic blood pressure 2023-06-08 19:13:00 114 mm[Hg] [facility] Diastolic blood pressure 2023-06-08 19:13:00 72 mm[Hg] [facility] Heart rate 2023-06-08 19:13:00 98 /min [facility] Body temperature 2023-06-08 19:13:00 36.78 [facility] Respiratory rate 2023-06-08 19:13:00 16 /min [facility] Body height 2023-06-08 19:13:00 170.2 cm [facility] Body weight 2023-06-08 19:13:00 73.029 kg [facility] BMI 2023-06-08 19:13:00 25.22 kg/m2 [facility] Oxygen saturation in Arterial blood by Pulse oximetry 2023-06-08 19:13:00 98 /min [facility] Systolic blood pressure 2023-05-11 16:02:00 118 mm[Hg] [facility] Diastolic blood pressure 2023-05-11 16:02:00 76 mm[Hg] [facility] Heart rate 2023-05-11 16:02:00 80 /min [facility] Respiratory rate 2023-05-11 16:02:00 18 /min [facility] Body height 2023-05-11 16:02:00 170.2 cm [facility] Body weight 2023-05-11 16:02:00 71.215 kg [facility] BMI 2023-05-11 16:02:00 24.59 kg/m2 [facility] Systolic blood pressure 2023-04-13 16:57:00 112 mm[Hg] [facility] Diastolic blood pressure 2023-04-13 16:57:00 74 mm[Hg] [facility] Heart rate 2023-04-13 16:57:00 84 /min [facility] Body temperature 2023-04-13 16:57:00 36.83 [facility] Respiratory rate 2023-04-13 16:57:00 16 /min [facility] Body height 2023-04-13 16:57:00 170.2 cm [facility] Body weight 2023-04-13 16:57:00 72.077 kg [facility] BMI 2023-04-13 16:57:00 24.89 kg/m2 [facility] Oxygen saturation in Arterial blood by Pulse oximetry 2023-04-13 16:57:00 100 /min [facility] Systolic blood pressure 2023-04-01 19:06:00 138 mm[Hg] [facility] Diastolic blood pressure 2023-04-01 19:06:00 91 mm[Hg] [facility] Heart rate 2023-04-01 19:06:00 110 /min [facility] Body temperature 2023-04-01 19:06:00 36.94 [facility] Respiratory rate 2023-04-01 19:06:00 16 /min [facility] Body height 2023-04-01 19:06:00 170.2 cm [facility] Body weight 2023-04-01 19:06:00 70.761 kg [facility] BMI 2023-04-01 19:06:00 24.43 kg/m2 [facility] Oxygen saturation in Arterial blood by Pulse oximetry 2023-04-01 19:06:00 100 /min [facility] Systolic blood pressure 2023-04-01 18:40:00 123 mm[Hg] [facility] Diastolic blood pressure 2023-04-01 18:40:00 88 mm[Hg] [facility] Heart rate 2023-04-01 18:40:00 101 /min [facility] Body temperature 2023-04-01 18:40:00 36.5 [facility] Respiratory rate 2023-04-01 18:40:00 14 /min [facility] Body height 2023-04-01 18:40:00 170.2 cm [facility] Body weight 2023-04-01 18:40:00 70.761 kg [facility] BMI 2023-04-01 18:40:00 24.43 kg/m2 [facility] Oxygen saturation in Arterial blood by Pulse oximetry 2023-04-01 18:40:00 99 /min [facility] Systolic blood pressure 2023-03-30 15:09:00 133 mm[Hg] [facility] Diastolic blood pressure 2023-03-30 15:09:00 89 mm[Hg] [facility] Heart rate 2023-03-30 15:09:00 82 /min [facility] Respiratory rate 2023-03-30 15:09:00 18 /min [facility] Body height 2023-03-30 15:09:00 170.2 cm [facility] Body weight 2023-03-30 15:09:00 71.215 kg [facility] BMI 2023-03-30 15:09:00 24.59 kg/m2 [facility] Systolic blood pressure 2022-09-02 00:48:00 155 mm[Hg] [facility] Diastolic blood pressure 2022-09-02 00:48:00 97 mm[Hg] [facility] Heart rate 2022-09-02 00:47:00 111 /min [facility] Body temperature 2022-09-02 00:47:00 36.28 [facility] Respiratory rate 2022-09-02 00:47:00 18 /min [facility] Body height 2022-09-02 00:47:00 170.2 cm [facility] Body weight 2022-09-02 00:47:00 75.978 kg [facility] BMI 2022-09-02 00:47:00 26.23 kg/m2 [facility] Oxygen saturation in Arterial blood by Pulse oximetry 2022-09-02 00:47:00 98 /min [facility] Systolic blood pressure 2021-02-04 17:59:00 138 mm[Hg] [facility] Diastolic blood pressure 2021-02-04 17:59:00 82 mm[Hg] [facility] Heart rate 2021-02-04 17:49:00 92 /min [facility] Body temperature 2021-02-04 17:49:00 36.56 [facility] Respiratory rate 2021-02-04 17:49:00 18 /min [facility] Body height 2021-02-04 17:49:00 170.2 cm [facility] Body weight 2021-02-04 17:49:00 64.411 kg [facility] BMI 2021-02-04 17:49:00 22.24 kg/m2 [facility] Oxygen saturation in Arterial blood by Pulse oximetry 2021-02-04 17:49:00 97 /min [facility] Procedures Procedure Date / Time Performed Performing Clinician Source POCT URINALYSIS W/O SPECIFIC GRAVITY 2023-09-21 00:00[facility] >11 Y[facility], IM 2023-09-07 19:52:37 [facility] POCT URINALYSIS W/O SPECIFIC GRAVITY 2023-09-07 00:00:00 [facility] SECOND AND THIRD TRIMESTER ULTRASOUND 2023-09-06 18:24:00 Marlen Rodriguezsol [facility] POCT URINALYSIS W/O SPECIFIC GRAVITY 2023-08-17 00:00:00 RuizRomy [facility] POCT URINALYSIS W/O SPECIFIC GRAVITY 2023-07-20 00:00[facility] SECOND AND THIRD TRIMESTER ULTRASOUND 2023-07-11 19:17:00 [facility] POCT URINALYSIS W/O SPECIFIC GRAVITY 2023-06-08 00:00:00 [facility] TOTAL BETA HCG ASSAY 2023-05-11 16:57:00 [facility]INE [facility]UG (IMMUNOASSAY) - COMPREHENSIVE DRUG SCREEN 2023-05-11 16:57:00 [facility] HB ABO GROUPING 2023-05-11 16:57:00 [facility] SCANNED LAB RESULTS 2023-05-11 06:01:00 Doctor Otilia dong, [place] [facility] POCT URINALYSIS W/O SPECIFIC GRAVITY 2023-05-11 00:00:00 [facility] US OB TRANSVAGINAL 2023-04-13 17:06:47 Daiana Rodriguezramona [facility] COMP. METABOLIC PANEL (15725) 2023-04-01 20:26:00 Shavon Pacheco [facility] TOTAL BETA HCG ASSAY 2023-04-01 20:26:00 Shavon Pacheco [facility] CBC WITH DIFF 2023-04-01 20:26:00 Shavon Pacheco [facility] URINALYSIS 2023-04-01 20:18:00 [facility] 2023-04-01 20:18:00 Shavon Pacheco [facility] CONSENT/REFUSAL FOR DIAGNOSIS AND TREATMENT 2023-04-01 18:46:52 Doctor Unassigned, [facility] FLU VACC (), 6 MO-64 YRS, .5ML, IM, QUAD (FLUCELVAX) 2023-03-30 15:34:32 Jennifer Raymon [facility] ASSIGNMENT OF BENEFITS 2023-03-30 14:50:38 Docto r Unassigned, [facility] POCT TEST 2023-03-30 00:00:00 Jennifer Raymon [facility] POCT URINALYSIS W/O SPECIFIC GRAVITY 2023-03-30 00:00:00 [facility] POCT TEST 2021-02-04 18:00:00 [facility] POCT URINALYSIS 2021-02-04 17:58:00 [facility] CONSENT/REFUSAL FOR DIAGNOSIS AND TREATMENT 2021-02-04 17:45:37 Doctor Unassigned, [facility] Encounters Start Date/Time End Date/Time Encounter Type Admission Type Attending Clinicians Care Facility Care Department Encounter ID Source 2023-10-12 14:00:00 2023-10-12 14:00:00 Outpatient R RAYMON VEGA MARISOL [facility] [id number] [facility] 2023-09-21 13:15:00 2023-09-21 13:27:11 Outpatient R RAYMON VEGA [facility] [id number] [facility] 2023-09-21 13:15:00 2023-09-21 13:27:11 Routine Visit Marlen Vegasol [facility] 1.2.840.114 350.1.13.10 4.2.7.2.686 [id number] [facility] 2023-09-12 00:00:00 2023-09-12 12:50:41 Telephone Clemente garcia [facility] 1.2.840.114 350.1.13.10 4.2.7.2.686 [id number] [facility] 2023-09-12 00:00:00 2023-09-12 12:46:12 Case Management Clemente garcia [facility] 1.2.840.114 350.1.13.10 4.2.7.2.686 [id number] [facility] 2023-09-07 13:00:00 2023-09-07 15:03:20 Outpatient R RUIZ-BUNNY S, RAYMON SILKE-BUNNY S [facility] [id number] [facility] 2023-09-07 13:00:00 2023-09-07 15:03:20 [facility] 1.2.840.114 350.1.13.10 4.2.7.2.686 [id number] [facility] 2023-09-06 13:00:00 2023-09-06 14:43:18 Manual Tester Visit Ultrasound, Jessica Gomez [facility] 1.2.840.114 350.1.13.10 4.2.7.2.686 [id number] [facility] 2023-09-06 13:00:00 2023-09-06 14:43:18 Outpatient P JESSICA SAUCEDO [facility] [id number] [facility] 2023-08-31 09:00:00 2023-08-31 12:48:38 Outpatient R RUIZ-BUNNY S, RAYMON [facility] [id number] 2023-08-31 09:00:00 2023-08-31 09:15:00 Manual Tester Visit Lab, [place] 1.2.840.114 350.1.13.10 4.2.7.2.686 [id number] [facility] 2023-08-29 08:45:00 2023-08-29 08:45:00 Outpatient R [facility] [id number] [facility] 2023-08-25 00:00:00 2023-08-25 00:00:00 Patient Secure Msg Doctor Unassigned, [place] [facility] 1.114 350.1.13.10 4.2.7.2.686 [id number] [facility] 2023-08-24 13:00:00 2023-08-24 13:15:00 Manual Tester Visit Lab, Morgan Ruiz-Bunny s [facility] 1.2.840.114 350.1.13.10 4.2.7.2.686 [id number] [facility] 2023-08-24 13:00:00 2023-08-24 13:00:00 Outpatient R RUIZ-BUNNY S, RAYMON RUIZ-BUNNY S, RAYMON [facility] [id number] [facility] 2023-08-17 14:45:00 2023-08-17 14:45:00 Routine Visit Ruiz-Bunny s, Raymon [facility] 1.114 350.1.13.10 4.2.7.2.686 [id number] [facility] 2023-08-17 14:45:00 2023-08-17 14:41:10 Outpatient R RUIZ-BUNNY S, RAYMON RUIZ-BUNNY S, RAYMON [facility] [id number] [facility] 2023-07-20 16:00:00 2023-07-20 16:09:23 Outpatient R CLEMENTE S, RAYMON [facility]UI[facility]BUNNY S[facility] [id number] [facility] 2023-07-20 16:00:00 2023-07-20 16:09:23 [facility] 1.114 350.1.13.10 4.2.7.2.686 [id number] [facility] 2023-07-18 00:00:00 2023-07-18 00:00:00 Telephone Clemente garcia [facility] 1.114 350.1.13.10 4.2.7.2.686 [id number] [facility] 2023-07-11 13:30:00 2023-07-11 14:40:20 Outpatient R ARJUN BERMUDEZ [facility] [id number] [facility] 2023-07-11 13:30:00 2023-07-11 14:40:20 Manual Tester Visit Ultrasound, Arjun Bustos [facility] [employer] [facility] 1..114 350.1.13.10 4.2.7.2.686 [id number] [facility] 2023-06-14 13:00:00 2023-06-14 16:53:18 Outpatient R CLEMENTE S, RAYMON RUIZ-BUNNY S [facility] [id number] [facility] 2023-06-14 13:00:00 2023-06-14 13:15:00 Manual Tester Visit Lab, Morgan RuizLittleBunny s [facility]ending [facility] to [facility] 1.84.114 350.1.13.10 4.2.7.2.686 [id number] [facility] 2023-06-08 13:00:00 2023-06-08 13:18:20 Outpatient R RAYMON [facility]BUNNY S[facility] [id number] [facility] 2023-06-08 13:00:00 2023-06-08 13:18:20 Routine Visit Clemente garcia [facility] 1.0.114 350.1.13.10 4.2.7.2.686 [id number] [facility] 2023-05-18 00:00:00 2023-05-18 00:00:00 Telephone Clemente garcia [facility] 1.0.114 350.1.13.10 4.2.7.2.686 [id number] [facility] 2023-05-11 10:45:00 2023-05-11 11:18:44 Outpatient R CLEMENTE Garcia, RAYMON CORNEJO S [facility] [id number] [facility] 2023-05-11 10:45:00 2023-05-11 11:18:44 Manual Tester Visit Lab, Ang - Db [facility] 1..114 350.1.13.10 4.2.7.2.686 [id number] [facility] 2023-05-11 10:00:00 2023-05-11 10:09:22 Routine Visit Clemente garcia [facility] 1..114 350.1.13.10 4.2.7.2.686 [id number] [facility] 2023-05-11 00:00:00 2023-05-11 00:00:00 Orders Only Doctor Unassigned, [place] [facility] 1.84.114 350.1.13.10 4.2.7.2.686 [id number] [facility] 2023-04-13 10:45:00 2023-04-13 11:08:48 Outpatient R RAYMON VEGA MARISOL [facility] [id number] [facility] 2023-04-13 10:45:00 2023-04-13 11:08:48 Routine Visit Raymon Vega [facility] 1.84.114 350.1.13.10 4.2.7.2.686 [id number] [facility] 2023-04-01 13:07:00 2023-04-01 15:45:00 Emergency X Shavon PACHECO [facility] [id number] [facility] 2023-04-01 13:07:00 2023-04-01 15:45:00 Emergency Shavon Pacheco [facility] 1.840.114 350.1.13.10 4.2.7.2.686 [id number] [facility] 2023-04-01 12:30:00 2023-04-01 12:37:02 Outpatient PAXTON REYES [facility] [id number] [facility] 2023-04-01 12:30:00 2023-04-01 12:37:02 Nurse Visit Nurse, Morgan [facility] Unknown, Attending [facility] 1.840.114 350.1.13.10 4.2.7.2.686 [id number] [facility] 2023-03-31 00:00:00 2023-03-31 00:00:00 Telephone Ruiz-Bunny s, [facility] 1.0.114 350.1.13.10 4.2.7.2.686 [id number] [facility] 2023-03-31 00:00:00 2023-03-31 00:00:00 Patient Secure Msg Doctor Unassigned, [place] [facility] 1.20.114 350.1.13.10 4.2.7.2.686 [id number] [facility] 2023-03-30 10:45:00 2023-03-30 10:45:00 Manual Tester Visit Lab, Morgan RuizLittleBunny g[facility] 1.84.114 350.1.13.10 4.2.7.2.686 [id number] [facility] 2023-03-30 09:00:00 2023-03-30 09:35:20 Outpatient R CLEMENTE Garcia, RAYMON RUIZPIETROI S, [facility] [id number] [facility] 2023-03-30 09:00:00 2023-03-30 09:35:20 Initial Visit [facility] 1..114 350.1.13.10 4.2.7.2.686 [id number] [facility] 2023-03-30 00:00:00 2023-03-30 00:00:00 Orders Only Doctor Unassigned, [place] [facility] 1..114 350.1.13.10 4.2.7.2.686 [id number] [facility] 2023-03-30 00:00:00 2023-03-30 00:00:00 Case Management ParisBunny s, [facility] 1.2.840.114 350.1.13.10 4.2.7.2.686 [id number] [facility] 2022-11-29 17:40:00 2022-11-29 17:40:00 Outpatient R [facility] [id number] [facility] 2022-09-15 00:00:00 2022-09-15 00:00:00 Telephone Nurse, Morgan [facility] 1..840.114 350.1.13.10 4.2.7.2.686 [id number] [facility] 2022-09-01 19:40:00 2022-09-01 20:13:21 Outpatient R SHAISTA YUEN [facility] [id number] [facility] 2022-09-01 19:40:00 2022-09-01 20:13:21 Urgent Care Laminederik Shaista Unknown, Attending [facility] 1..840.114 350.1.13.10 4.2.7.2.686 [id number] [facility] 2021-04-14 09:15:00 2021-04-14 09:15:00 Outpatient R MARCELINO DUDLEY [facility] [id number] [facility] 2021-02-04 12:45:47 2021-02-04 13:05:47 Urgent Care [facility] 1.2.840.114 350.1.13.10 4.2.7.2.686 [id number] [facility] 2021-02-04 13:00:00 2021-02-04 13:00:00 Outpatient R MARISOL NGUYEN [facility] [id number] [facility] 2021-02-04 00:00:00 2021-02-04 00:00:00 Orders Only Doctor Unassigned, [place] [facility] 1.2.840.114 350.1.13.10 4.2.7.2.686 [id number] [facility] 2020-10-07 14:38:00 2020-10-07 15:10:00 Emergency [facility] [id number] 52 [facility] 2020-07-15 10:02:11 2020-07-15 10:21:25 Office Visit Marcelino Dudley [facility] 1.2.840.114 350.1.13.10 4.2.7.2.686 [id number] 2020-07-15 10:00:00 2020-07-15 10:00:00 Outpatient R MARCELINO DUDLEY [facility] [id number] [facility] 2020-06-26 08:45:00 2020-06-26 08:45:00 Outpatient R IVETTE YORK [facility] [id number] [facility] 2020-04-13 13:45:00 2020-04-13 13:45:00 Outpatient R MARCELINO DUDLEY [facility] [id number] [facility] 2020-04-09 14:30:00 2020-04-09 14:30:00 Outpatient R MARCELINO DUDLEY [facility] [id number] [facility] 2020-01-17 14:30:00 2020-01-17 14:30:00 Outpatient R [facility] [id number] [facility] 2020-01-08 13:40:00 2020-01-08 13:40:00 Outpatient R [facility] [id number] [facility] 2019-10-25 14:00:00 2019-10-25 14:00:00 Outpatient R MARCELINO DUDLEY [facility] [id number] [facility] 2019-10-24 13:00:2019-10-24 13:00:00 Outpatient R [facility] [id number] [facility] 2019-08-01 13:00:00 2019-08-01 13:00:00 Outpatient R [facility] [id number] [facility] 2019-07-25 15:00:00 2019-07-25 15:00:00 Outpatient R [facility] [id number] [facility] Results Test Description Test Time Test Comments Results Result Co mments Source [facility] w/o Specific [id number] 19:50:00* Test Item Value Reference Range Interpretation Comme nts POCT PH U (test code = 3254) N/A 5-8 POCT U LEUK EST (test code = 3263) N/A Negative - Negative POCT U NIT (test code = 3262) N/A Negative - Negati ve POCT U PROT (test code = 3259) Trace Negative - Negat estuardo POCT U GLU (test code = 3256) Negative Negative - Negati ve POCT U KETONE (test code = 3258) N/A Negative - Neg ative POCT U BLD (test code = 3257) N/A Negative - Negati ve [facility] Urinalysis w/o Specific [id number] 19:16:00* Test Item Value Reference Range Interpretation Comme nts POCT PH U (test code = 3254) n/a 5-8 POCT U LEUK EST (test code = 3263) n/a Negative - Negative POCT U NIT (test code = 3262) n/a Negative - Negati ve POCT U PROT (test code = 3259) negative Negative - Negat estuardo POCT U GLU (test code = 3256) negative Negative - Negati ve POCT U KETONE (test code = 3258) n/a Negative - Neg ative POCT U BLD (test code = 3257) n/a Negative - Negati ve [facility] w/o Specific [id number] 21:01:00* Test Item Value Reference Range Interpretation Comme nts POCT PH U (test code = 3254) N/A 5-8 POCT U LEUK EST (test code = 3263) N/A Negative - Negative POCT U NIT (test code = 3262) N/A Negative - Negati ve POCT U PROT (test code = 3259) Negative Negative - Negat estuardo POCT U GLU (test code = 3256) Negative Negative - Negati ve POCT U KETONE (test code = 3258) N/A Negative - Neg ative POCT U BLD (test code = 3257) N/A Negative - Negati ve [facility] w/o Specific [id number] 19:11:00* Test Item Value Reference Range Interpretation Comme nts POCT PH U (test code = 3254) n/a 5-8 POCT U LEUK EST (test code = 3263) n/a Negative - Negative POCT U NIT (test code = 3262) n/a Negative - Negati ve POCT U PROT (test code = 3259) negative Negative - Negat estuardo POCT U GLU (test code = 3256) negative Negative - Negati ve POCT U KETONE (test code = 3258) n/a Negative - Neg ative POCT U BLD (test code = 3257) n/a Negative - Negati ve [facility] HCG [id number] 21:19:39* Test Item Value Reference Range Interpretation Comme nts BETA HCG (test code = 3257812881) 43990.00 See_Comment [Automated Onyua ge] The system which generated this result transmitted reference range: Non- female and male patients: <5 mIU/mL. The reference range was not used to interpret this result as normal/abnormal. LUIS MIGUEL (test code = LUIS MIGUEL) Gestational Age ?Range (mIU/mL) 1-10 ?Weeks ?07-61448658-72 Weeks ?21349-75533680-30 Weeks ?2053-17150323-35 Weeks ?3334-193347 Biotin has been reported to cause a negative bias, interpret results relative to patient's use of biotin. [facility], BLOOD [id number] 19:30:00 * Test Item Value Reference Range Interpretation Comme nts ABO & RH (test code = 20) B POSITIVE IAT (test code = 1185) Negative [facility] w/o Specific [id number] 15:58:00* Test Item Value Reference Range Interpretation Comme nts POCT PH U (test code = 3254) N/A 5-8 POCT U LEUK EST (test code = 3263) N/A Negative - Negative POCT U NIT (test code = 3262) N/A Negative - Negati ve POCT U PROT (test code = 3259) Negative Negative - Negat estuardo POCT U GLU (test code = 3256) Negative Negative - Negati ve POCT U KETONE (test code = 3258) N/A Negative - Neg ative POCT U BLD (test code = 3257) N/A Negative - Negati ve [facility] BETA HCG [id number] 21:23:28* Test Item Value Reference Range Interpretation Comme nts BETA HCG (test code = 0083239809) 8113.30 See_Comment [Automated Onyua ge] The system which generated this result transmitted reference range: Non- female and male patients: <5 mIU/mL. The reference range was not used to interpret this result as normal/abnormal. LUIS MIGUEL (test code = LUIS MIGUEL) Gestational Age ?Range (mIU/mL) 1-10 ?Weeks ?53-17830872-51 Weeks ?93217-60952842-59 Weeks ?1030-60003969-88 Weeks ?1119-882061 Biotin has been reported to cause a negative bias, interpret results relative to patient's use of biotin. [facility]. METABOLIC PANEL (30028)2023-04-01 21:08:34* Test Item Value Reference Range Interpretation Comme nts NA (test code = 4950424112) 137 mmol/L 135-145 K (test code = 0637484492) 3.8 mmol/L 3.5-5.0 CL (test code = 6741770679) 103 mmol/L 98-108 CO2 TOTAL (test code = 8971084564) 26 mmol/L 23-31 AGAP (test code = 5969374971) 8 2-16 BUN (test code = 8012115281) 8 mg/dL 7-23 GLUCOSE (test code = 4549918057) 90 mg/dL 70-110 CREATININE (test code = 3089765994) 0.59 mg/dL 0.50-1.04 TOTAL BILI (test code = 7644822195) 0.5 mg/dL 0.1-1.1 CALCIUM (test code = 7384096275) 9.6 mg/dL 8.6-10.6 T PROTEIN (test code = 6498428043) 7.9 g/dL 6.3-8.2 ALBUMIN (test code = 8472420227) 4.5 g/dL 3.5-5.0 ALK PHOS (test code = 6760630472) 119 U/L 34-122 ALTv (test code = 1742-6) 74 U/L 5-35 H AST(SGOT) (test code = 6374003608) 87 U/L 13-40 H eGFR (test code = 79555-4) 130.1 mL/min/1.73m2 CKD-EPI eGFR (2020). Assuming creatinine has been stable day-to-day for at least three months, the eGFR indicates Category G1 (>= 90 mL/min/1.73 m2) Lab Interpretation (test code = 10855-6) Abnormal [facility] WITH [id number] 20:43:13* Test Item Value Reference Range Interpretation Comme nts WBC (test code = 6690-2) 4.44 See_Comment [Automated Proposify] The system which generated this result transmitted reference range: 4.30 - 11.10 10*3/?L. The reference range was not used to interpret this result as normal/abnormal. RBC (test code = 789-8) 4.50 See_Comment [Automated Onyua JollyDeck] The system which generated this result transmitted reference range: 3.93 - 5.25 10*6/?L. The reference range was not used to interpret this result as normal/abnormal. HGB (test code = 718-7) 14.1 g/dL 11.6-15.0 HCT (test code = 4544-3) 41.2 % 35.7-45.2 MCV (test code = 787-2) 91.6 fL 80.6-95.5 MCH (test code = 785-6) 31.3 pg 25.9-32.8 MCHC (test code = 786-4) 34.2 g/dL 31.6-35.1 RDW-SD (test code = 52578-9) 41.9 fL 39.0-49.9 RDW-CV (test code = 788-0) 12.5 % 12.0-15.5 PLT (test code = 777-3) 201 See_Comment [Automated Onyua ge] The system which generated this result transmitted reference range: 166 - 358 10*3/?L. The reference range was not used to interpret this result as normal/abnormal. MPV (test code = 82334-8) 10.3 fL 9.5-12.9 NRBC/100 WBC (test code = 1587671867) 0.0 See_Comment [Automated Serveron ssage] The system which generated this result transmitted reference range: 0.0 - 10.0 /100 WBCs. The reference range was not used to interpret this result as normal/abnormal. NRBC x10^3 (test code = 9207933601) See_Comment [Automated Onyua ge] The system which generated this result transmitted reference range: 10*3/?L. The reference range was not used to interpret this result as normal/abnormal. GRAN MAT (NEUT) % (test code = 770-8) 58.6 % IMM GRAN % (test code = 8820094565) 0.20 % LYMPH % (test code = 736-9) 28.8 % MONO % (test code = 5905-5) 10.8 % EOS % (test code = 713-8) 0.9 % BASO % (test code = 706-2) 0.7 % GRAN MAT x10^3(ANC) (test code = 4498352985) 2.60 10*3/uL 1.88-7.09 IMM GRAN x10^3 (test code = 6990162033) 0.00-0.06 LYMPH x10^3 (test code = 731-0) 1.28 10*3/uL 1.32-3.29 L MONO x10^3 (test code = 742-7) 0.48 10*3/uL 0.33-0.92 EOS x10^3 (test code = 711-2) 0.04 10*3/uL 0.03-0.39 BASO x10^3 (test code = 704-7) 0.03 10*3/uL 0.01-0.07 Lab Interpretation (test code = 26167-6) Abnormal [facility] [id number] 20:18:00* Test Item Value Reference Range Interpretation Comme nts POCT PREG (test code = 1605) Positive On board controls acceptable with C Line (test code = 3574) Yes POCT PREG LOT # (test code = 3575) [id number] POCT PREG TEST DATE ( test code = 3576) Lab Interpretation (test cod e = 77493-0) Normal [facility] URINALYSIS W/O SPECIFIC [id number] 15:18:00* Test Item Value Reference Range Interpretation Comme nts POCT PH U (test code = 3254) N/A 5-8 POCT U LEUK EST (test code = 3263) N/A Negative - Negative POCT U NIT (test code = 3262) N/A Negative - Negati ve POCT U PROT (test code = 3259) Negative Negative - Negat estuardo POCT U GLU (test code = 3256) Negative Negative - Negati ve POCT U KETONE (test code = 3258) N/A Negative - Neg ative POCT U BLD (test code = 3257) N/A Negative - Negati ve [facility] [id number] 15:18:00* Test Item Value Reference Range Interpretation Comme nts POCT PREG (test code = 1605) Positive On board controls acceptable with C Line (test code = 3574) Yes POCT PREG LOT # (test code = 3575) POCT PREG TEST DATE ( test code = 3576) [facility] [id number] 18:00:00* Test Item Value Reference Range Interpretation Comme nts POCT PREG (test code = 1605) Negative On board controls acceptable with C Line (test code = 3574) Yes POCT PREG LOT # (test code = 3575) POCT PREG TEST DATE ( test code = 3576) Lab Interpretation (test cod e = 09476-1) [facility] URINALYSIS W SPECIFIC BRGEGCR3982-13-00 17:59:00* Test Item Value Reference Range Interpretation Comme nts POCT U SP GRAV (test code = 3255) 1.010 mg/dl 1.005-1.025 POCT PH U (test code = 3254) 7 mg/dl 5-8 POCT U LEUK EST (test code = 3263) + Negative - Negative POCT U NIT (test code = 3262) Pos Negative - Negati ve POCT U PROT (test code = 3259) Neg Negative - Negative POCT U GLU (test code = 3256) Normal Negative - Negati ve POCT U KETONE (test code = 3258) Neg Negative - Negative POCT U UROBILI (test code = 3260) Normal 0.2-1 POCT U BILI (test code = 3261) Neg Negative - Negative POCT U BLD (test code = 3257) about 50 Negative - Negati ve POCT U COLOR (test code = 3266) Yellow POCT U APPEAR (test code = 3267) Clear Lab Interpretation (test cod e = 32849-0) Abnormal [facility] Notes Date/Time Note Provider Source 2023-09-21 13:15:00 2137-12-02E97:15:00F ormatting of this note is different from the original.ROUTINE VISIT09/21/2023 1:26 PMSUBJECTIVEScandispavithra Peck is a 23 year old at 30w1d who presents for routine visit. She has no complaints today: loss of fluid, vaginal bleeding, and signs or symptoms of pre-eclampsia. Good movement. Occasional contractions.Pt states atarax helped for the first 2 days of anxiety but not as helpful. Is taking the Zoloft higher dose. Not es scheduled for counseling.OBJECTIVEBP 124/75 (BP Location: Right arm, Patient Position: Sitting, BP CUFF SIZE: Adult Large) | Pulse 90 | Temp 36.7 ?C (98 ?F) (Oral) | Resp 16 | Ht 5' 7" (1.702 m) | Wt 187 lb (84.8 kg) | LMP 03/09/2023 (Exact Date) | BMI 29.29 kg/m?Physical Exam:Gen: A&Ox3, NADAbd: Soft, gravid, NTTP, ND, no rebound or guardingExt: No calf tendernessGU: deferredASSESSMENT:Susan Peck is a 23 year old at 30w1d who presents for routine visit.Patient Active Problem ListDiagnosisHigh-risk in first trimesterHistory of depressionHistory of self-harmFamily history of congenital heart defectAnemia of mother in , antepartumChronic depressionPanic attackPsoriasisHx of preeclampsia, prior , currently Low lying placenta nos or without hemorrhage, second trimesterHigh-risk in second trimesterDepression affecting pregnancyPLAN1. High-risk in third trimester--47%ile on 09/05 US- POCT Urinalysis w/o Specific Gravity2. Hx of preeclampsia, prior , currently -continue LDA- POCT Urinalysis w/o Specific Gravity3. Depression affecting --On Zoloft 200 mg daily + atarax for anxiety prn--Awaiting counselor appt, in meantime recommend mindfulness and medication- POCT Urinalysis w/o Specific Gravity4. 30 weeks gestation of --Reviewed with patient FAC-- labor warnings reviewed--All questions answered 10909-0Xgzqrytn fzagHJ6616-95-34N55:29:56Progress noteTXT1.2.840.313692.1.13.104.2.7 .2.999153|[id number] for patient ttlf33489-0AymvOANEACRMSAYTeprxmsl d C-CDA narrative textUTMBUT - [address] Dq[id number] 35QQMVZWVLWCCVCJRALLZDHE1745-14-24 T13:29:561.2.840.973135.1.72.3.15| 1.2.840.310845.1.13.104.2.7.2.7278 [id number] [facility] 2023-09-12 12:47:57 2665-31-23K32:47:57F ormatting of this note might be different from the original.Per provider, sending in hydroxyzine prn every 6 hours for panic attacks, increasing zoloft dose to [address] for psychiatrist consult. Notified patient of prescriptions sent in and referral placed. Patient agreed and pleased with outcome. Advised patient if panic attacks get severe,uncontrollable, or she has SI, please go or have someone take her to ER for medical evaluation.Patient verbalized understanding.Cheryl Tarango RN 09/12/2023 12:50 PM 95088-1Nxcgihzep encounter TgluEI8723-04-83X91:50:37Telephone encounter NoteTXT1.2.840.819956.1.13.104.2.7 .2.402791|[id number] for patient fygo35087-6JqgcWUZKYXFFFGHTdhcuwss d C-CDA narrative [id number] Stahl RN[address] Og[id number] 77ZKHARARXRDFQVFJPBEEYOC3975-96-49 T12:50:371.2.840.078840.1.72.3.15| 1.2.840.430562.1.13.104.2.7.2.7278 [id number] Cheryl Tarango RN [facility] 2023-09-12 12:46:16 7718-35-54S92:46:16F ormatting of this note might be different from the original.Meds sent and psych consult placed. 56524-8Mgbptodxs encounter DxayUA8071-24-06D23:46:34Telephone encounter NoteTXT1.2.840.622046.1.13.104.2.7 .2.171882|[id number] for patient bjcs61806-7VxjzRSPENQLFVICSutlvlkj d C-CDA narrative text[id number] 03QQRYLAVYIFGVRALAMCTZEJ6621-64-76 T12:46:341.2.840.622688.1.72.3.15| 1.2.840.102283.1.13.104.2.7.2.7278 [id number] [facility] 2023-09-12 12:34:22 1210-95-27T76:34:22F ormatting of this note might be different from the original.Spoke with patient, states that for the past couple days she has been having panic attacks, sob, chest tightness, scared like something bad is going to happen, lasting around 3-4 hours. It has woken her out of her sleep due to panic attacks. SHANE-7 score-19. Currently taking zoloft but doesn't feel it is doing much right now. Advised patient that I would speak with provider for recommendations. Informed patient that provider may want her to come in for evaluation.Cheryl Tarango RN 09/12/2023 12:35 PM 34717-2Laimaesll encounter UjqsZG9037-99-73O39:39:48Telephone encounter NoteTXT1.2.840.531821.1.13.104.2.7 .2.777804|[id number] for patient jomi86828-5CtunWXUYDZLDWONIxkpwkds d C-CDA narrative text[id number] 30IIMVIKFKRDTYRKTKFWVDSG0296-89-32 T12:39:481.2.840.363052.1.72.3.15| 1.2.840.236548.1.13.104.2.7.2.7278 [id number] [facility] 2023-09-12 12:31:53 9755-43-57G26:31:53F ormatting of this note might be different from the original.Pt calling want to be seen for anxiety attacks she having daily that last hours. 63552-3Qaeuuvmlh encounter UqezIY1798-25-53H58:32:25Telephone encounter NoteTXT1.2.840.284874.1.13.104.2.7 .2.653835|[id number] for patient hvqe96457-7DchcOIUVFOKKBTOWtwlnjlf d C-CDA narrative [id number] Richard[address] FwxqHluprxvjjFxkaousnbXFTJ26449110 53FKUQCHXVIYIJVAFXFGXMUQ0245-22-82 T12:32:251.2.840.560717.1.72.3.15| 1.2.840.819418.1.13.104.2.7.2.7278 79_[id number] Isaura Richard [facility] 2023-09-07 13:00:00 4557-33-17Z29:00:00F ormatting of this note is different from the original.ROUTINE VISIT09/07/2023 3:11 PMSUBJECTIVESnoreen Peck is a 22 year old at 28w1d who presents for routine visit. She has no complaints today: loss of fluid, vaginal bleeding, and signs or symptoms of pre-eclampsia. Good movement. Occasional contractions.OBJECTIVEBP 127/74 | Pulse 118 | Resp 18 | Ht 5' 7" (1.702 m) | Wt 181 lb (82.1 kg) | LMP 03/09/2023 (Exact Date) | BMI 28.35 kg/m?Physical Exam:Gen: A&Ox3, NADAbd: Soft, gravid, NTTP, ND, no rebound or guardingExt: No calf tendernessGU: deferredASSESSMENT:Susan Peck is a 22 year old at 28w1d who presents for routine visit.Patient Active Problem ListDiagnosisHigh-risk in first trimesterHistory of depressionHistory of self-harmFamily history of congenital heart defectChronic depressionPanic attackPsoriasisHx of preeclampsia, prior , currently Low lying placenta nos or without hemorrhage, second trimesterHigh-risk in second trimesterPLAN1. High-risk in third trimester--reviewed recent growth US from 09/05, normal placenta location, 47%ile2. Hx of preeclampsia, prior , currently --continue LDA3. 28 weeks gestation of - TDAP VACCINE, >10 YRS, IM- POCT Urinalysis w/o Specific Gravity4. Need for Tdap vaccination- TDAP VACCINE, >10 YRS, IM--Reviewed 3rd trimester labs, normal 3 hr gtt. Mild anemia. Take PNV +iron.--Reviewed with patient FAC-- labor warnings reviewed--All questions answered 73967-5Fcpcqjel urtmHF3411-27-37S87:13:50Progress noteTXT1.2.840.334061.1.13.104.2.7 .2.820655|[id number] for patient ahpe52010-5SzgfHYUJRVGUKTXDwzvwobo d C-CDA narrative textUT[address] DzvqZpomwtlnlXuzssswigRJQT02478195 87RPQKHAZNAKDQRXNQLNQMNY7871-94-65 T15:13:501.2.840.836153.1.72.3.15| 1.2.840.192079.1.13.104.2.7.2.7278 [id number] [facility] 2023-09-06 13:00:00 7766-17-01M42:00:00F ormatting of this note might be different from the original.Reviewed recent ultrasound results, show: Normal growth, normal placenta position 19113-4Evnrfvhn phxvIQ0124-95-09O17:59:56Progress noteTXT1.2.840.293148.1.13.104.2.7 .2.662613|[id number] for patient cdyl59410-7WzgsLFJXBFUPKCIMuolcdlr d C-CDA narrative text[id number] 52OSTYTFAGWMHGASKBNRFMUF1361-71-41 T07:59:561.2.840.280053.1.72.3.15| 1.2.840.338849.1.13.104.2.7.2.7278 79_[id number] [facility] 2023-08-31 09:00:00 5000-77-21W78:00:00F ormatting of this note is different from the original.Images from the original note were not included.Venipuncture collection performed by clean technique on the right anticubitus. Total of 1 attempts were made. Slight pressure and a bandage/dressing were applied to the site(s). The patient experienced no complications. The following specimens were processed according to instructions and sent to [facility] laboratories per lab order on 08/31/2023 :Given 100gm orange glucola. Finished at 0906.LT BLUESST 1REDLAVPPTDK GREEN (LiHep)DK GREEN (SodH)GRAYDK BLUE (K2)DK BLUE (S)ACDBlood CultureNIPT/NTD 88681-3Rtboe TsrdHR9057-35-57Y44:07:43Nurse NoteTXT1.2.840.793778.1.13.104.2.7 .2.966536|[id number] for patient qqxc31833-6Qnefp NoteLNNARRATIVEFormatted C-CDA narrative text[id number] 23JQRPRWLTOHJFTEUBSXHRYQ7689-03-64 T09:07:431.2.840.609589.1.72.3.15| 1.2.840.468109.1.13.104.2.7.2.7278 [id number] [facility] 2023-08-31 09:00:00 2886-84-79A66:00:00F ormatting of this note is different from the original.Images from the original note were not included.Venipuncture collection performed by clean technique on the left anticubitus. Total of 1 attempts were made. Slight pressure and a bandage/dressing were applied to the site(s). The patient experienced no complications. The following specimens were processed according to instructions and sent to [facility] laboratories per lab order on 08/31/2023 :LT BLUESST 1REDLAVPPTDK GREEN (LiHep)DK GREEN (SodH)GRAYDK BLUE (K2)DK BLUE (S)ACDBlood CultureNIPT/NTD 54767-6Dossm YamuQV5181-71-26D40:11:49Nurse NoteTXT1.2.840.982562.1.13.104.2.7 .2.650545|[id number] for patient hhpc04457-6Lcfsq NoteLNNARRATIVEFormatted C-CDA narrative text[address] Ordj[id number] 07ARAOJOEXTQUEGSIRWGJUBI3920-59-49 T10:11:491.2.840.900132.1.72.3.15| 1.2.840.619217.1.13.104.2.7.2.7278 79_[id number] [facility] 2023-08-31 09:00:00 0680-82-89W99:00:00F ormatting of this note is different from the original.Images from the original note were not included.Venipuncture collection performed by clean technique on the right anticubitus. Total of 1 attempts were made. Slight pressure and a bandage/dressing were applied to the site(s). The patient experienced no complications. The following specimens were processed according to instructions and sent to [facility] laboratories per lab order on 08/31/2023 :LT BLUESSTREDLAVPPTDK GREEN (LiHep)DK GREEN (SodH)GRAYDK BLUE (K2)DK BLUE (S)ACDBlood CultureNIPT/NTD1 lt green 82084-4Tfgjv RgigXH8560-71-61P22:21:51Nurse NoteTXT1.2.840.332823.1.13.104.2.7 .2.869901|[id number] for patient wrbq08559-1Jsvaj NoteLNNARRATIVEFormatted C-CDA narrative textUT[address] KavjGbxffhkhtTqabfhopzYIOD85665470 82UYYVNIVOQHIRMSQJAIMLZY1572-26-41 T11:21:511.2.840.243940.1.72.3.15| 1.2.840.495359.1.13.104.2.7.2.7278 [id number] [facility] 2023-08-31 09:00:00 8742-57-70T27:00:00F ormatting of this note is different from the original.Images from the original note were not included.Venipuncture collection performed by clean technique on the left anticubitus. Total of 1 attempts were made. Slight pressure and a bandage/dressing were applied to the site(s). The patient experienced no complications. The following specimens were processed according to instructions and sent to [facility] laboratories per lab order on 08/31/2023 :LT BLUESSTREDLAVPPTDK GREEN (LiHep)DK GREEN (SodH)GRAYDK BLUE (K2)DK BLUE (S)ACDBlood CultureNIPT/NTD1 lt green 49344-0Bazgx TzogVB7354-36-92U16:03:47Nurse NoteTXT1.2.840.984857.1.13.104.2.7 .2.875513|[id number] for patient gwck00317-8Nggzy NoteLNNARRATIVEFormatted C-CDA narrative text[id number] 15GGYJWTVPPOVHTXZVSSILBN7504-24-06 T12:03:471.2.840.396183.1.72.3.15| 1.2.840.245296.1.13.104.2.7.2.7278 [id number] [facility] 2023-08-25 16:25:32 7310-26-49W13:25:32F ormatting of this note might be different from the original.3 hr gtt ordered. 37112-2Vctxchtwq encounter QmxgOI8806-23-94M37:26:14Telephone encounter NoteTXT1.2.840.737379.1.13.104.2.7 .2.265188|0009848593OSUirenmgwh for patient wvgn88403-3XujeMMZQTCYSFPXTdykupeo d C-CDA narrative text[id number] 88CQGPCELHUGVAFVUVMSKNBC7366-02-56 T16:26:141.2.840.735496.1.72.3.15| 1.2.840.571363.1.13.104.2.7.2.7278 79_[id number] [facility] 2023-08-24 13:00:00 3662-29-73O68:00:00F ormatting of this note might be different from the original.Gave Patient 50 Glucola - No Red Dye AllergyPatient started @ 1309Patient ended @ 1312Will draw pt for labs @ 1412Whitbowen Benavides 08/24/2023 1:12 PM 46720-7Lrlah SfruSS8064-86-72P42:13:01Nurse NoteTXT1.2.840.446784.1.13.104.2.7 .2.309734|[id number] for patient frlk60945-3Lsijt NoteLNNARRATIVEFormatted C-CDA narrative [id number] 75EDAQDXOOICISLANFOQDGOY2910-97-91 T13:13:011.2.840.259297.1.72.3.15| 1.2.840.189429.1.13.104.2.7.2.7278 [id number] [facility] 2023-08-24 13:00:00 1617-25-94Z08:00:00F ormatting of this note is different from the original.Images from the original note were not included.Venipuncture collection performed by clean technique on the right anticubitus. Total of 1 attempts were made. Slight pressure and a bandage/dressing were applied to the site(s). The patient experienced no complications. The following specimens were processed according to instructions and sent to [facility] laboratories per lab order on 08/24/2023:LT BLUESST 2RED 1LAV 2PPTDK GREEN (LiHep)DK GREEN (SodH)GRAYDK BLUE (K2)DK BLUE (S)ACDBlood CultureNIPT/NTDPatient has been identified by and name and was provided with cup, antiseptic towelette, and clean catch instructions. 1 urine specimen(s) sent.Unpreserved 1Urine CultureAptima tubeOther urine1 URINE TEST1 EXTRA TUBEWhitbowen Benavides 08/24/2023 2:18 PM 73968-9Nwaky CmjgGY2078-48-36N55:18:10Nurse NoteTXT1.2.840.439639.1.13.104.2.7 .2.739688|[id number] for patient zymq09781-4Kwczd NoteLNNARRATIVEFormatted C-CDA narrative [id number] 84OBTFPIQZINYPCOPXWCVIFA8515-30-54 T14:18:101.2.840.029049.1.72.3.15| 1.2.840.915626.1.13.104.2.7.2.7278 [id number] [facility] 2023-08-17 14:45:00 2076-22-85X02:45:00F ormatting of this note is different from the original.ROUTINE VISIT08/17/2023 2:56 PMSUBJECTIVESnoreen Peck is a 22 year old at 25w1d who presents for routine visit. She has some complaints today; denies contractions, loss of fluid, vaginal bleeding, and signs or symptoms of pre-eclampsia. Good movement.Complaining of left sided flank pain. Denies dysuria or feverOBJECTIVEBP 120/78 (BP Location: Right arm, Patient Position: Sitting, BP CUFF SIZE: Adult Medium) | Pulse 77 | Temp 36.8 ?C (98.2 ?F) (Oral) | Resp 16 | Ht 5' 7" (1.702 m) | Wt 175 lb 8 oz (79.6 kg) | LMP 03/09/2023 (Exact Date) | BMI 27.49 kg/m?Physical Exam:Gen: A&Ox3, NADPulm: No labored breathingAbd: Soft, gravid, NTTP, ND, no rebound or guardingExt: No calf tendernessGU: deferredASSESSMENT:Susan Peck is a 22 year old at 25w1d who presents for routine visit.Patient Active Problem ListDiagnosisHigh-risk in first trimesterHistory of depressionHistory of self-harmFamily history of congenital heart defectChronic depressionPanic attackPsoriasisHx of preeclampsia, prior , currently Low lying placenta nos or without hemorrhage, second trimesterHigh-risk in second trimesterPLAN1. 25 weeks gestation of - POCT Urinalysis w/o Specific [place]- Workup, Blood Bank; Future- Cbc with Diff; Future- Glucose 1 Hour Post Prandial; Future- ADC or Lilibeth Only - Rpr; Future- HIV 1/2 Ag-Ab with Reflex; Future- Urine Culture; Future2. High-risk in second trimester3. Hx of preeclampsia, prior , currently --continue LDA4. Low lying placenta nos or without hemorrhage, second trimester--FU US set 5/155. Back pain affecting in second trimester- Urine Culture; Future--Anatomy US Follow up for low placenta set--Discussed with patient plan for 3rd trimester lab testing--All questions answered 04485-9Yhtehjmy jjdaOE1703-46-95X43:58:11Progress noteTXT1.2.840.989081.1.13.104.2.7 .2.394573|[id number] for patient cpgg07207-3FvojSZYLBNPQZFBQbljxkbi d C-CDA narrative textUT[address] StreetAflaHrkuekhkqBoswmedxaXFRX70785530 12YJJTBKYZYWFAEWKEGSLZLU6461-25-09 T14:58:111.2.840.823880.1.72.3.15| 1.2.840.889980.1.13.104.2.7.2.7278 [id number] [facility] 2023-07-20 16:00:00 1435-67-98O54:00:00F ormatting of this note is different from the original.ROUTINE VISIT07/20/2023 4:10 PMSUBJECTIVESavapavithra Peck is a 22 year old at 21w1d who presents for routine visit. She has no complaints today; denies contractions, loss of fluid, vaginal bleeding, and signs or symptoms of pre-eclampsia. Good movement.OBJECTIVEBP 119/74 | Pulse 97 | Resp 18 | Ht 5' 7" (1.702 m) | Wt 167 lb (75.8 kg) | LMP 03/09/2023 (Exact Date) | BMI 26.16 kg/m?Physical Exam:Gen: A&Ox3, NADPulm: No labored breathingAbd: Soft, gravid, NTTP, ND, no rebound or guardingExt: No calf tendernessGU: deferredASSESSMENT:Susan Peck is a 22 year old at 21w1d who presents for routine visit.Patient Active Problem ListDiagnosisHigh-risk in first trimesterHistory of depressionHistory of self-harmFamily history of congenital heart defectChronic depressionPanic attackPsoriasisHx of preeclampsia, prior , currently Low lying placenta nos or without hemorrhage, second trimesterHigh-risk in second trimesterPLAN1. High-risk in second trimester- CONSULT [facility]. Hx of preeclampsia, prior , currently 3. 21 weeks gestation of - POCT Urinalysis w/o Specific Gravity4. Low lying placenta nos or without hemorrhage, second trimester- CONSULT MATERNAL MEDICINE ULTRASOUND Preferred Location: [place]--Anatomy US reviewed with low lying placenta, FU US ordered for 3rd trimester--Discussed with patient plan for 3rd trimester lab testing--All questions answered 67297-9Ojqezash vyonAQ2998-73-27V49:11:18Progress noteTXT1.2.840.174700.1.13.104.2.7 .2.611640|[id number] for patient muuk64800-8YlhgEZTZBITJDRBCkpbtjap d C-CDA narrative text[address] Bbiu[id number] 39RYTYKFKJKSMMINMWDSXJZW0155-13-97 T16:11:181.2.840.986784.1.72.3.15| 1.2.840.575519.1.13.104.2.7.2.7278 [id number] [facility] 2023-07-18 11:46:50 5281-23-33O33:46:50F ormatting of this note might be different from the original.Pt's name and both verified, pt informed of results per provider's message/orders below. Pt verbalized understanding. 15354-4Wlhzxbiil encounter OvbcKT7579-79-07U28:46:56Telephone encounter NoteTXT1.2.840.029190.1.13.104.2.7 .2.204112|[id number] for patient qukx29853-5QydpIAJAEHJNFEFGkbakdbv d C-CDA narrative [id number] E Burch MA[address]TXTX[address] 76HBNWWYLKRCNXLGWCUBEDEZ3961-05-33 T11:46:561.2.840.030466.1.72.3.15| 1.2.840.717567.1.13.104.2.7.2.7278 [id number] Larissa Hernandez MA [facility] 2023-07-18 11:23:06 8320-06-36O94:23:06F ormatting of this note might be different from the original.Patient says she got call today to review some results. 73585-4Orahlobne encounter OnefCU4229-66-84R94:23:35Telephone encounter NoteTXT1.2.840.284481.1.13.104.2.7 .2.595637|5043985712MZUxrvpklws for patient wyqh99916-6CxwdGMOZQJCLQLYKipiklyi d C-CDA narrative [id number] [address]vdGal[address]onGalveston[place]TX[address] 66VSIBGBKOSQTNNWOFVBINUA8667-68-05 T11:23:351.2.840.019222.1.72.3.15| 1.2.840.290599.1.13.104.2.7.2.7278 [id number] Isaura Ramos [facility] 2023-07-11 13:30:00 4810-38-74V46:30:00F ormatting of this note might be different from the original.Reviewed recent ultrasound results, show: normal anatomy. Placenta is low lying. Patient will need to abstain from intercourse until placenta in better position. Will discuss more at next appt, 35839-1Ohjvaofb nizhZV6339-88-91D07:41:57Progress noteTXT1.2.840.742357.1.13.104.2.7 .2.215706|5085931259SECkphgtleh for patient whdo12169-5GgzhZQLCRWEFCHLEoddbgvk d C-CDA narrative textUT[address] EcyoIlujasxhzVrkymtkoaLRAC49013277 77RJVZPTLRRYITVLYCRFVTHL1826-55-21 T09:41:571.2.840.392740.1.72.3.15| 1.2.840.616312.1.13.104.2.7.2.7278 [id number] [facility] 2023-06-14 13:00:00 4442-53-46L58:00:00F ormatting of this note is different from the original.Images from the original note were not included.Venipuncture collection performed by clean technique on the left anticubitus. Total of 1 attempts were made. Slight pressure and a bandage/dressing were applied to the site(s). The patient experienced no complications. The following specimens were processed according to instructions and sent to [facility] laboratories per lab order on 06/14/2023:LT BLUESST 1REDLAVPPTDK GREEN (LiHep)DK GREEN (SodH)GRAYDK BLUE (K2)DK BLUE (S)ACDBlood CultureNIPT/NTD 75310-1Rujoy WadzIP7289-86-78E29:22:23Nurse NoteTXT1.2.840.245069.1.13.104.2.7 .2.721192|[id number] for patient jcyr46064-3Mktgw NoteLNNARRATIVEFormatted C-CDA narrative text[address] VztaQjaj[id number] 48TWONCUOKAHVTSQYUMEWGXE8800-24-86 T13:22:231.2.840.636036.1.72.3.15| 1.2.840.114658.1.13.104.2.7.2.7278 [id number] [facility] 2023-06-08 13:00:00 9623-33-57B07:00:00F ormatting of this note is different from the original.ROUTINE VISIT06/08/2023 1:19 PMSUBJECTIVESnoreen Peck is a 22 year old at 15w1d who presents for routine visit. She has no complaints today; denies contractions, loss of fluid, vaginal bleeding, and signs or symptoms of pre-eclampsia.Desires to restart Zoloft for depression, needs rx.OBJECTIVEBP 114/72 | Pulse 98 | Temp 36.8 ?C (98.2 ?F) (Oral) | Resp 16 | Ht 5' 7" (1.702 m) | Wt 161 lb (73 kg) | LMP 03/09/2023 (Exact Date) | SpO2 98% | BMI 25.22 kg/m?FHT:Physical Exam:Gen: A&Ox3, NADPulm: No labored breathingAbd: Soft, gravid, NTTP, ND, no rebound or guardingExt: No calf tendernessASSESSMENT:Susan Peck is a 22 year old at 15w1d who presents for routine visit.Patient Active Problem ListDiagnosisHigh-risk in first trimesterHistory of depressionHistory of self-harmFamily history of congenital heart defectChronic depressionPanic attackPsoriasisHx of preeclampsia, prior , currently PLAN1. 15 weeks gestation of - POCT Urinalysis w/o Specific [place]- Alpha Fetoprotein-Maternal Ser; Future2. High-risk in second trimester- CONSULT MATERNAL MEDICINE ULTRASOUND3. Depression affecting in second trimester, antepartum- SERTraline (ZOLOFT) 100 mg tablet; Take 1 tablet by mouth in the morning. Dispense: 30 tablet; Refill: 6--NIPS testing reviewed, normal--anatomy US requested--[place] [id number] [id number]:20:32Progress [id number] .[id number] for patient [id number] d C-CDA narrative [id number] T13:20:321.2.840.651280.1.72.3.15| 1.2.840.049724.1.13.104.2.7.2.7278 [id number] [facility] 2023-05-18 16:42:55 [id number]:42:55F ormatting of this note might be different from the original.Images from the original note were not included.Chanell results received via fax.Panorama results accessed by patient on Ryzing on 05/18/2023. Will discuss Horizon results at next visit. Results signed, will scan and upload a copy to [facility]. [id number] encounter YmnqXM4430-14-73M97:47:21Telephone encounter NoteTXT1.2.840.978709.1.13.104.2.7 .2.639569|[id number] for patient dpmz55721-2AeqzYUVKTROXTJFDzmlvwjm d C-CDA narrative textClassroom IQ92 Hayes [id number] 88MMRLHOJPCEDQXFFIDHWARA3234-94-12 T16:47:211.2.840.721462.1.72.3.15| 1.2.840.291589.1.13.104.2.7.2.7278 [id number] [facility] 2023-05-11 10:45:00 0197-19-52Z04:45:00F ormatting of this note is different from the original.Images from the original note were not included.Venipuncture collection performed by clean technique on the left anticubitus. Total of 1 attempts were made. Slight pressure and a bandage/dressing were applied to the site(s). The patient experienced no complications. The following specimens were processed according to instructions and sent to [facility] laboratories per lab order on today:LT BLUESST 1REDLAV 1PPTDK GREEN (LiHep)DK GREEN (SodH)GRAYDK BLUE (K2)DK BLUE (S)ACDBlood CultureNIPT/NTDNatera was also done and sent out..sign [id number] JvuhXJ0515-60-16L60:08:53Nurse NoteTXT1.2.840.456573.1.13.104.2.7 .2.037616|[id number] for patient cxyk13135-3Mcahs NoteLNNARRATIVEFormatted C-CDA narrative text[address] Ib[id number] 94JTSOBDQAZHVGWTGTUDQPSG2485-08-07 T11:08:531.2.840.248768.1.72.3.15| 1.2.840.045706.1.13.104.2.7.2.7278 [id number] [facility] 2023-05-11 10:00:00 9277-92-12Q21:00:00F ormatting of this note is different from the original.ROUTINE VISIT05/11/2023 10:09 AMSUBJECTIVESnoreen Peck is a 22 year old at 11w1d who presents for routine visit. She has no complaints today; denies contractions, loss of fluid, vaginal bleeding, and signs or symptoms of pre-eclampsia.OBJECTIVEBP 118/76 | Pulse 80 | Resp 18 | Ht 5' 7" (1.702 m) | Wt 157 lb (71.2 kg) | LMP 03/09/2023 (Exact Date) | BMI 24.59 kg/m?Physical Exam:Gen: A&Ox3, NADPulm: No labored breathingAbd: Soft, gravid, NTTP, ND, no rebound or guardingExt: No calf tendernessGU: ClosedFHR: 176ASSESSMENT:Susan Peck is a 22 year old at 11w1d who presents for routine visit.Patient Active Problem ListDiagnosisHigh-risk in first trimesterHistory of depressionHistory of self-harmFamily history of congenital heart defectChronic depressionPanic attackPsoriasisHx of preeclampsia, prior , currently PLAN1. High-risk in first trimester2. 11 weeks gestation of - POCT Urinalysis w/o Specific [place]--Reviewed US findings--NIPS testing offered and accepted--Questions answeredMarisol MD Jennifer 85120-3Rqykknul iszuQG2289-74-96X95:11:07Progress noteTXT1.2.840.924716.1.13.104.2.7 .2.827418|[id number] for patient llrs77575-5IookWWYCDVPLQQEXnzpawmv d C-CDA narrative textUT[address] Cn[id number] 93VNTUBGIOIMVXIGHSWBOVHO5347-26-22 T10:11:071.2.840.454084.1.72.3.15| 1.2.840.222208.1.13.104.2.7.2.7278 [id number] [facility] 2023-04-13 10:45:00 1114-74-98M15:45:00F ormatting of this note is different from the original.ROUTINE VISIT04/13/2023 11:09 AMSUBJECTIVESnoreen Peck is a 22 year old at 7w1d who presents for routine visit. She has no complaints today; denies contractions, loss of fluid, vaginal bleeding, and signs or symptoms of pre-eclampsia.OBJECTIVEBP 112/74 | Pulse 84 | Temp 36.8 ?C (98.3 ?F) (Oral) | Resp 16 | Ht 5' 7" (1.702 m) | Wt 158 lb 14.4 oz (72.1 kg) | LMP 03/09/2023 (Exact Date) | SpO2 100% | BMI 24.89 kg/m?Physical Exam:Gen: A&Ox3, NADPulm: No labored breathingAbd: Soft, gravid, NTTP, ND, no rebound or guardingExt: No calf tendernessGU: ClosedASSESSMENT:Susan Peck is a 22 year old at 7w1d who presents for routine visit.Patient Active Problem ListDiagnosisHigh-risk in first trimesterHistory of depressionHistory of self-harmFamily history of congenital heart defectChronic depressionPanic attackPsoriasisHx of preeclampsia, prior , currently PLAN1. High-risk in first trimester- OB Ultrasound TransvaginalTransvaginal Ultrasound performed:present gestational sacpresent yolk iok2y5c not c/w lmp [place] rump pfsyif167 heart rateEDC changed to 11/28/22--Reviewed US findingsReviewed OB labs--NIPS testing planned at next visit--Questions answeredMarisol MD Jennifer 76145-8Whihhext chwuZF5817-79-25H91:11:19Progress noteTXT1.2.840.836391.1.13.104.2.7 .2.707874|[id number] for patient xmvi28361-8YcxrMNQHMHLIZROEgwrggku d C-CDA narrative textUTMBUTMB - [id number] 75MKYKABNJXKQUVPPSVWPSNP1771-41-51 T11:11:191.2.840.976649.1.72.3.15| 1.2.840.519150.1.13.104.2.7.2.7278 [id number] [facility] 2020-10-07 14:52:00 WCixitfnlcm14113222F mA8Bhk1N69OBTX tKg8//3f2QshF4Djb0Itb93B7ATb+twrs4 lEux6ZwETEFMiw/8459-36-29D54:52:00 [facility] ([facility]OR [facility]ENC[facility] PROVIDER REPORTREPORT#:[id number] REPORT STATUS: SignedDATE:10/07/20 TIME: 1451 PATIENT: SUSAN peck UNIT #: [id number]#: [id number] ROOM/BED:AGE: 20 SEX: F PCP PHYS: No Primary or Family PhysicianSERVICE DT: AUTHOR: Diego Jain MD * ALL edits or amendments must be made on the electronic/computer document * HPI-URI/Cough/Cold GeneralInitial Greet Date/Time 10/07/20 1442 PresentationChief Complaint Earache R Free Text HPI NotesFree Text HPI NotesPatient is a 20-year-old female comes to the emergency department complaint of right ear pain. Patient states that she has had right ear pain for over a week. She states the pain is dull in nature and nonradiating. She denies any cough or congestion. No nausea vomiting or diarrhea. No sick contacts. No fever or chills. She states the pain is about a 9 out of 10 and worse at nighttime. Review of Systems Free Text ROS NotesFree Text ROS NotesReview of SystemsCONSTITUTIONAL: No fever or chills. No weaknessEyes: No visual changes. No eye pain. No eye discharge. ENT: No runny nose. No epistaxis. No sinus pain. No sore throat. Right earpain. No congestion.RESPIRATORY: No coughing, wheezing or shortness of breath. No hemoptysisCARDIOVASCULAR: No chest pain, syncope or palpitations.GASTROINTESTINAL: No Nausea, vomiting, diarrhea or constipation. No melena or hematocheziaGENITOURINARY: No urgency, frequency, dysuria, hematuria, or discharge. MUSCULOSKELETAL: No joint swelling or pain. No muscle crampsNEUROLOGICAL: No headache, syncope or seizures. No extremity numbness or weaknessSKIN: No rashes. No itchingALL OTHER REVIEW OF SYSTEMS NEGATIVE Past Medical History - AdultStated Complaint RIGHT EAR PAIN/INFECTIONAllergiesCoded Allergies:No Known Allergies (10/07/20) Physical Exam Vital SignsVital SignsFirst Documented: Result Date Time Pulse Ox 100 10/07 1452 B/P 140/80 10/07 1452 B/P Mean 100 10/07 1452 O2 Delivery Room air 10/07 1452 Temp 37.1 10/07 1452 Pulse 88 10/07 1452 Resp 14 10/07 1452 Last Documented: Result Date Time Pulse Ox 100 10/07 1452 B/P 140/80 10/07 1452 B/P Mean 100 10/07 1452 O2 Delivery Room air 10/07 1452 Temp 37.1 10/07 1452 Pulse 88 10/07 1452 Resp 14 10/07 1452 Review of Vital Signs Reviewed Free Text PE NotesFree Text PE NotesPHYSICAL EXAMINATION:GENERAL: A O x 4. The patient is well developed and nontoxic.HEENT: Nonicteric sclerae, PERRLA, EOMI. Oropharynx clear. Moist mucous membranes. Conjunctivae appear well perfused. Right tympanic membrane erythema,dullness and bulging. No purulent drainage.CHEST: Chest wall is nontender.HEART: Regular rate and rhythm without murmurs.LUNGS: Clear to auscultation bilaterally. No wheezes, ronchi or ralesABDOMEN: Soft, positive bowel sounds, nontender, no organomegaly.RECTAL: Deferred.SKIN: No rash, no excessive bruising, petechiae, or purpura.EXTREMITIES: No clubbing, cyanosis or edema, Pedal pulses 2+, Radial pulse +NEUROLOGIC: Cranial nerves II-XII intact without gross motor/sensory deficit. Patient Discharge Departure Vital Signs/ConditionVital SignsFirst Documented: Result Date Time Pulse Ox 100 10/07 1452 B/P 140/80 / 1452 B/P Mean 100 10/07 1452 O2 Delivery Room air 10/07 1452 Temp 37.1 10/07 1452 Pulse 88 10/07 1452 Resp 14 10/07 1452 Last Documented: Result Date Time Pulse Ox 100 10/07 1452 B/P 140/80 / 1452 B/P Mean 100 / 1452 O2 Delivery Room air 10/07 1452 Temp 37.1 10/07 1452 Pulse 88 10/07 1452 Resp 14 10/07 1452 All vital signs available at the time of this entry have been reviewed. Condition Stable Clinical ImpressionClinical ImpressionPrimary Impression: Right otitis media Disposition DecisionDischarge )( Discharged to Home Yes )( Time 1503 )( Date 10/07/20 Discharge/Care Plan(Auto) PrescriptionsCurrent Visit ScriptsAMOXICILLIN/CLAV K (AUGMENTIN 875/125 MG) 875 MG PO Q12H AMOXICILLIN/CLAV K (AUGMENTIN 875/125 MG) 875 MG PO Q12H #20 TABS IBUPROFEN (MOTRIN) 600 MG PO QID PRN PRN PAIN IBUPROFEN (MOTRIN) 600 MG PO QID PRN PRN PAIN #30 TABS Patient Instructions ED SEROUS OTITIS MEDIA AdultReferrals PRIMARY CARE: 2-3 Days Discharge NoteI have spoken with the patient and/or caregivers. I have explained the patient'scondition, diagnoses and treatment plan based on the information available to meat this time. I have answered the patient's and/or caregiver's questions and addressed any concerns. The patient and/or caregivers have as good an understanding of the patient's diagnosis, condition and treatment plan as can beexpected at this point. The vital signs have been stable. The patient's condition is stable and appropriate for discharge from the emergency department. The patient will pursue further outpatient evaluation with the primary care physician or other designated or consulting physician as outlined in the discharge instructions. The patient and/or caregivers are agreeable to this planof care and follow-up instructions have been explained in detail. The patient and/or caregivers have received these instructions in written format and have expressed an understanding of the discharge instructions. The patient and/or caregivers are aware that any significant change in condition or worsening of symptoms should prompt an immediate return to this or the closest emergency department or a call to 911. at 1504RPT #:[id number] OF REPORTKell [facility] department mxcrvh3175-66-90F05:52:00D.EFAI761 [id number] for patient gfjrLAUQWLCEDSWWOQ6609-37-15Z27:04 :22 [facility]
[2023-10-04] MEDS ORDERED: NA CHLORIDE 0.9% 1,000 ML ONE (13:13)
[2023-10-04 13:18] LABS: Absolute Lymphocytes (CBC) 0.7 K/uL (0.7-4.9); Absolute Monocytes 0.7 K/uL (0.1-1.3); Absolute Neutrophil 6.9 K/uL (1.8-8.0); Basophils % 0.2 % (0-1.3); Eosinophils % 0.1 % (0-4.4); Hematocrit 30.5 % (36.0-45.0); Hemoglobin 10.3 g/dL (12.0-15.0); Lymphocytes % 7.9 % (15.3-44.8); MCH 29.8 pg (27.0-35.0); MCHC 33.8 g/dL (32.0-36.0); MCV 88.2 fL (80-100); MPV 8.2 fL (7.6-11.3); Monocytes % 8.4 % (3.3-12.3); Neutrophils % 83.4 % (41.7-73.7); Platelets 185 thou/uL (152-406); RBC Red Blood Cell Count 3.45 M/uL (3.86-4.86)
[2023-10-04 13:37] LABS: Anion Gap 9.1 mEq/L (5.0-15.0); Potassium 4.1 mEq/L (3.5-5.1)
[2023-10-04] MEDS ORDERED: HYDROCODONE/APAP 5/325 MG TAB ONE (14:03)
--- NOTE | 2023-10-04 14:20 | RAD REPORT ---
EXAM DESCRIPTION: US - OB Limited - 10/04/2023 1:35 pm CLINICAL HISTORY: ABD PAIN COMPARISON: No comparisons TECHNIQUE: Sonographic grayscale and color flow images of a first-trimester were obtained through transabdominal approach. FINDINGS: A single live intrauterine is identified. Presentation is cephalic. Placenta has formed along the posterior right wall, with no evidence of placenta previa. Internal cervical os is closed. Subjectively normal volume of amniotic fluid. Femur length measures 5.87 cm, corresponding to gestational age of 30 weeks, 5 days. heart rate: 149 BPM. Anterior groin wall contraction is incidentally noted. Maternal ovaries were not visualized. No free fluid. IMPRESSION: 1. Single live intrauterine . No evidence of complications noted. 2. Calculated gestational age: 30 weeks, 5 days. Estimated due date by ultrasound: 12/08/2023.
[2023-10-04 14:56] LABS: Specific Gravity 1.009 (1.005-1.030); Urine Bilirubin NEGATIVE (Negative); Urine Blood Negative (Negative); Urine Clarity Clear (Clear); Urine Color Colorless (Yellow); Urine Glucose NEGATIVE (Negative); Urine Ketones TRACE (Negative); Urine Microscopic Reflex YN NO UMIC; Urine Nitrite NEGATIVE (Negative); Urine Protein NEGATIVE (Negative); Urine Urobilinogen Normal (Normal)
--- NOTE | 2023-10-04 15:30 | EDPHYS ---
Physician Documentation [facility] Name: Caprice Peck Age: 23 yrs Sex: Female : 2000 Arrival Date: 10/04/2023 Time: 12:25 Bed 20 Private MD: ED Physician Isma Chang HPI: 10/03 14:31 This 23 yrs old Female presents to ER via Ambulatory with complaints of Back Pain, ms3 Abdominal Cramping, Preg-32wks. 14:31 23-year-old female with past medical history of anxiety, depression [place] [facility] [place] for back pain and abdominal cramping. Patient states she fell down 4 stairs on Monday night. Patient denies weakness, incontinence, vaginal bleeding, loss of fluid. Patient states her last menstrual period was February 22, 2023. She is a -1-0-0.. CASE MANAGEMENT ASSOCIATE: 12:38 LMP 02/22/2023, Verified, EDC 11/29/2023, Gestational age from LMP: 32 weeks 0 as6 days Historical: - Allergies: 12:39 No Known Allergies; as6 - PMHx: 12:39 Anxiety; depressive disorder; as6 - PSHx: 12:39 Appendectomy; as6 - Immunization history:: Adult Immunizations up to date. - Infectious Disease History:: Denies. - Social history:: Smoking status: Patient denies any tobacco usage or history of. ROS: 14:31 Constitutional: Negative for fever, and chills. Cardiovascular: Negative for chest ms3 pain, and palpitations. Respiratory: Negative for shortness of breath, cough, wheezing, and pleuritic chest pain, MS/Extremity: Negative for injury and deformity, 14:31 Abdomen/GI: Positive for abdominal pain, Exam: 14:31 Constitutional: This is a well developed, well nourished patient who is awake, alert, ms3 and in no acute distress. Chest/axilla: Normal chest wall appearance and motion. Nontender with no deformity. Cardiovascular: Regular rate and rhythm with a normal S1 and S2. No gallops, murmurs, or rubs. Normal PMI, no JVD. No pulse deficits. Respiratory: Lungs have equal breath sounds bilaterally, clear to auscultation and percussion. No rales, rhonchi or wheezes noted. No increased work of breathing, no retractions or nasal flaring. 14:31 Abdomen/GI: Inspection: abdomen appears normal, Bowel sounds: normal, in all quadrants, Palpation: abdomen is soft and non-tender, Gravid, Vital Signs: 12:38 BP 156 / 78; Pulse 117; Resp 18; Temp 99; Pulse Ox 98% ; Weight 81.65 kg; Height 5 ft. as6 7 in. ; Pain 6/10; 14:32 BP 133 / 79; Pulse 110; Resp 17; Pulse Ox 99% on R/A; rs5 15:35 BP 135 / 82; Pulse 100; Resp 18; Pulse Ox 99% on R/A; rs5 12:38 Body Mass Index 28.19 (81.65 kg, 170.18 cm) as6 12:38 Pain Scale: Adult as6 MDM: 13:04 Patient medically screened. ms3 14:31 Differential diagnosis: UTI vs Muscle strain vs Cidra Fuentes contractions. ms3 15:31 Data reviewed: vital signs, nurses notes, lab test result(s), and as a result, I will ms3 discharge patient. I considered the following discharge prescriptions or medication management in the emergency department Medications were administered in the Emergency Department. See MAR. Counseling: I had a detailed discussion with the patient and/or guardian regarding the historical points, exam findings, and any diagnostic results supporting the discharge/admit diagnosis, lab results, radiology results, the need for outpatient follow up, to return to the emergency department if symptoms worsen or persist or if there are any questions or concerns that arise at home. Special discussion: I discussed with the patient/guardian in detail that at this point there is no indication for admission to the hospital. It is understood, however, that if the symptoms persist or worsen the patient needs to return immediately for re-evaluation. ED course: Discussed labs and ultrasound results with patient. Patient to follow-up with her CASE MANAGEMENT ASSOCIATE in 2 to 3 days. Patient understands and agrees with plan. All questions were answered. On reevaluation patient symptoms improved, patient is alert and oriented x 4, no apparent distress, nontoxic-appearing, speaking full sentences.. 10/03 13:01 Order name: Basic Metabolic Panel; Complete Time: 13:50 ms3 10/03 13:01 Order name: CBC with Diff; Complete Time: 13:50 ms3 10/03 14:31 Order name: Urinalysis w/ reflexes; Complete Time: 15:05 ms3 10/03 13:01 Order name: US OB Limited; Complete Time: 14:30 ms3 10/03 13:01 Order name: IV Saline Lock; Complete Time: 13:10 ms3 10/03 13:01 Order name: Labs collected and sent; Complete Time: 13:10 ms3 10/03 13:01 Order name: NPO; Complete Time: 13:10 ms3 Administered Medications: 13:13 Drug: NS 0.9% IV 1000 ml IV at 1 bolus Per protocol; 1000 mL bolus Route: IV; Rate: 1 rs5 bolus; Site: left antecubital; 15:30 Follow up: Response: No adverse reaction rs5 14:01 Drug: HYDROcodone-acetaminophen PO 5 mg-325 mg 1 tabs PO once Route: PO; rs5 15:20 Follow up: Response: No adverse reaction; Pain is decreased rs5 Disposition Summary: 10/04/23 15:30 Discharge Ordered Notes: Location: Home ms3 Condition: Stable ms3 Diagnosis - Low back pain ms3 - Abdominal pain, unspecified ms3 Followup: ms3 - With: Private Physician - When: 2 - 3 days - Reason: Recheck today's complaints Discharge Instructions: - Discharge Summary Sheet ms3 - Third Trimester of , Pxzr-yn-Xuvk ms3 Forms: - Medication Reconciliation Form ms3 - Antibiotic Education ms3 - Prescription Opioid Use ms3 - Patient Portal Instructions ms3 - Leadership Thank You Letter ms3 Signatures: Dispatcher [employer] EDIsma Yu DO DO ms3 Lasha Oliveros, MIC RN as6 Marshall Zuluaga RN RN rs5 Corrections: (The following items were deleted from the chart) 13:01 13:01 BASIC METABOLIC PANEL+C.LAB.BRZ ordered. EDMS EDMS 13: 13:01 CBC+H.LAB.BRZ ordered. EDMS EDMS 13:01 13:01 OB Limited+US.RAD.BRZ ordered. EDMS EDMS 14:31 14:31 Urinalysis+U.LAB.BRZ ordered. EDMS EDMS
--- NOTE | 2023-10-04 15:30 | ER ---
Nurse's Notes [facility] Name: Caprice Peck Age: 23 yrs Sex: Female : 2000 Arrival Date: 10/04/2023 Time: 12:25 Bed 20 Private MD: Diagnosis: Low back pain;Abdominal pain, unspecified Presentation: 10/03 12:40 Chief complaint: Patient states: c/o lower back pain after a fall down the stairs on as6 Monday. Coronavirus screen: At this time, the client does not indicate any symptoms associated with coronavirus-19. Ebola Screen: No symptoms or risks identified at this time. Initial Sepsis Screen: Does the patient meet any 2 criteria? No. Patient's initial sepsis screen is negative. Does the patient have a suspected source of infection? No. Patient's initial sepsis screen is negative. Risk Assessment: Do you want to hurt yourself or someone else? Patient reports no desire to harm self or others. Onset of symptoms was October 02, 2023. 12:40 Acuity: CARLOS ENRIQUE 3 as6 12:40 Method Of Arrival: Ambulatory as6 Triage Assessment: 12:54 General: Appears uncomfortable, Behavior is calm, cooperative, appropriate for age. ap3 Pain: Complains of pain in back and abdomen Pain began 2-3 days ago. Neuro: Level of Consciousness is awake, alert, obeys commands, Oriented to person, place, time, situation. Cardiovascular: Patient's skin is warm and dry. Respiratory: Airway is patent Respiratory effort is even, unlabored, Respiratory pattern is regular, symmetrical. Musculoskeletal: Range of motion: intact in all extremities. 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 - Infectious Disease History:: Denies. - Social history:: Smoking status: Patient denies any tobacco usage or history of. Screenin:34 [facility] ED Fall Risk Assessment (Adult) History of falling in the last 3 months, rs5 including since admission No falls in past 3 months (0 pts) Confusion or Disorientation No (0 pts) Intoxicated or Sedated No (0 pts) Impaired Gait No (0 pts) Mobility Assist Device Used No (0 pt) Altered Elimination No (0 pt) Score/Fall Risk Level 0 - 2 = Low Risk Oriented to surroundings, Maintained a safe environment. 12:53 Abuse screen: Denies threats or abuse. Nutritional screening: No deficits noted. ap3 Tuberculosis screening: No symptoms or risk factors identified. Assessment: 12:33 General: Appears in no apparent distress. uncomfortable, Behavior is calm, cooperative. rs5 Pain: Complains of pain in abdomen and back Pain currently is 4 out of 10 on a pain scale. Quality of pain is described as aching, Is continuous. Neuro: Level of Consciousness is awake, alert, obeys commands, Oriented to person, place, time, situation. Cardiovascular: Patient's skin is warm and dry. Rhythm is sinus tachycardia. Respiratory: Airway is patent Respiratory effort is even, unlabored, Respiratory pattern is regular, symmetrical. GI: Abdomen is round non-distended, Abd is soft and non tender X 4 quads. : No signs and/or symptoms were reported regarding the genitourinary system. EENT: No signs and/or symptoms were reported regarding the EENT system. Derm: Skin is intact, Skin is pink, warm \T\ dry. Musculoskeletal: Range of motion: intact in all extremities. 12:38 Reassessment: provider notified of elevated pulse. rs5 13:20 Reassessment: Patient and/or family updated on plan of care and expected duration. Pain rs5 level reassessed. Patient is alert, oriented x 3, equal unlabored respirations, skin warm/dry/pink. 13:48 Pain: Complains of pain in abdomen and back Pain currently is 8 out of 10 on a pain rs5 scale. Quality of pain is described as aching, Is continuous. 13:50 Reassessment: provider notified pt is experiencing pain. rs5 14:39 Reassessment: Patient and/or family updated on plan of care and expected duration. Pain rs5 level reassessed. Patient is alert, oriented x 3, equal unlabored respirations, skin warm/dry/pink. Patient states feeling better. 15:30 Reassessment: No changes from previously documented assessment. rs5 Vital Signs: 12:38 BP 156 / 78; Pulse 117; Resp 18; Temp 99; Pulse Ox 98% ; Weight 81.65 kg; Height 5 ft. as6 7 in. ; Pain 6/10; 14:32 BP 133 / 79; Pulse 110; Resp 17; Pulse Ox 99% on R/A; rs5 15:35 BP 135 / 82; Pulse 100; Resp 18; Pulse Ox 99% on R/A; rs5 12:38 Body Mass Index 28.19 (81.65 kg, 170.18 cm) as6 12:38 Pain Scale: Adult as6 Vitals: 12:49 Heart Tones 168. ap3 ED Course: 12:28 Patient arrived in ED. mg5 12:37 Isma Chang DO is Attending Physician. ms3 12:38 Arm band placed on. as6 12:44 Triage completed. as6 12:53 Patient has correct armband on for positive identification. Bed in low position. Call ap3 light in reach. Side rails up X 1. Pulse ox on. NIBP on. Door closed. Noise minimized. 12:55 Provided Education on: call light use education. ap3 13:02 Marshall Zuluaga, RN is Primary Nurse. rs5 13:37 US OB Limited In Process Unspecified. EDMS 15:40 No provider procedures requiring assistance completed. rs5 15:40 IV discontinued, intact, bleeding controlled, No redness/swelling at site. Pressure rs5 dressing applied. Administered Medications: 13:13 Drug: NS 0.9% IV 1000 ml IV at 1 bolus Per protocol; 1000 mL bolus Route: IV; Rate: 1 rs5 bolus; Site: left antecubital; 15:30 Follow up: Response: No adverse reaction rs5 14:01 Drug: HYDROcodone-acetaminophen PO 5 mg-325 mg 1 tabs PO once Route: PO; rs5 15:20 Follow up: Response: No adverse reaction; Pain is decreased rs5 Medication: 12:55 VIS not applicable for this client. ap3 Outcome: 15:30 Discharge ordered by . ms3 15:40 Discharged to home ambulatory, with family, rs5 15:40 Condition: stable 15:40 Discharge instructions given to patient, family, Instructed on discharge instructions, follow up and referral plans. Demonstrated understanding of instructions, follow-up care, 15:49 Patient left the ED. rs5 Signatures: Dispatcher [employer] EDMS Cherie Preston RN RN ap3 Isma Chang, DO MAS ms3 Lasha Oliveros RN RN as6 Marshall Zuluaga RN RN rs5 Aleah Falcon mg5 Corrections: (The following items were deleted from the chart) 14:38 14:32 Reassessment: provider notified of elevated pulse. rs5 rs5 16:26 15:22 Reassessment: No changes from previously documented assessment. rs5 rs5
[2023-10-04 16:06] VITALS: BP 133/79; TEMP 99; O2SAT 99
== END 2023-10-04 15:49 | disposition home or self-care (01) ==
LOC: ER 12:25
DX: O26.893 Other specified pregnancy related conditions, third trimester (principal); Z3A.32 32 weeks gestation of pregnancy
CPT/HCPCS: 85025; 80048; 36415; 81003; 76815; 99284; J7030